=== PATIENT | male | born 1940 | race African-American/Black ===

== ENCOUNTER 2017-09-23 05:17 | Inpatient (IN) | payer MEDICARE, OTHER ==
[2017-09-23] MEDS ORDERED: NORMAL SALINE 1000 ML 1,000 ML IV ONE (06:02)
[2017-09-23] MEDS ORDERED: CEFEPIME 1 GM/D5W RTU 1 GM/50 ML RTUPB IV ONE (06:07)
--- NOTE | 2017-09-23 06:19 | ER Document Report ---
ED General - General Chief Complaint: Fever Stated Complaint: FEVER,WEAKNESS Time Seen by Provider: 09/23/17 06:07 Mode of Arrival: Ambulatory Information source: Patient Notes: 76-year-old male history of prostate metastatic cancer who is receiving chemotherapy last received on Monday presents with complaints of fever that started just prior to arrival. Patient notes he had difficulty urinating today. Patient has psoriasis and does note worsening rash in the left groin as well TRAVEL OUTSIDE OF THE [place] IN LAST 30 DAYS: No - HPI Onset: Just prior to arrival Onset/Duration: Sudden Quality of pain: No pain Severity: Mild Pain Level: Denies Associated symptoms: Nonproductive cough, Fever Exacerbated by: Denies Relieved by: Denies Similar symptoms previously: Yes - Patient septic from neutropenic infection last yr Recently seen / treated by doctor: Yes - Related Data Allergies/Adverse Reactions: No Known Allergies Allergy (Unverified 09/23/17 06:16) Past Medical History - Social History Smoking Status: Never Smoker Cigarette use (# per day): No Chew tobacco use (# tins/day): No Smoking Education Provided: No Family History: Reviewed & Not Pertinent Review of Systems - Review of Systems Notes: REVIEW OF SYSTEMS: CONSTITUTIONAL : fever EENT: Denies eye, ear, throat, or mouth pain or symptoms. Denies nasal or sinus congestion or discharge. Denies throat, tongue, or mouth swelling or difficulty swallowing. CARDIOVASCULAR: Denies chest pain. Denies palpitations or racing or irregular heart beat. Denies ankle edema. RESPIRATORY: chronic cough GASTROINTESTINAL: Denies abdominal pain or distention. Denies nausea, vomiting , or diarrhea. Denies blood in vomitus, stools, or per rectum. Denies black, tarry stools. Denies constipation. GENITOURINARY: Denies difficulty urinating, painful urination, burning, frequency, blood in urine, or discharge. MUSCULOSKELETAL: Denies back or neck pain or stiffness. Denies joint pain or swelling. SKIN: psoriasis rash HEMATOLOGIC : Denies easy bruising or bleeding. LYMPHATIC: Denies swollen, enlarged glands. NEUROLOGICAL: Denies confusion or altered mental status. Denies passing out or loss of consciousness. Denies dizziness or lightheadedness. Denies headache. Denies weakness or paralysis or loss of use of either side. Denies problems with gait or speech. Denies sensory loss, numbness, or tingling. Denies seizures. PSYCHIATRIC: Denies anxiety or stress. Denies depression, suicidal ideation, or homicidal ideation. ALL OTHER SYSTEMS REVIEWED AND NEGATIVE. Dictation was performed using [employer] voice recognition software PHYSICAL EXAMINATION: GENERAL: Obese male febrile HEAD: Atraumatic, normocephalic. EYES: Pupils equal round and reactive to light, extraocular movements intact, sclera anicteric, conjunctiva are normal. ENT: Nares patent, oropharynx clear without exudates. Moist mucous membranes. NECK: Normal range of motion, supple without lymphadenopathy LUNGS: Breath sounds clear to auscultation bilaterally and equal. No wheezes rales or rhonchi. HEART: Tachycardic ABDOMEN: Soft, nontender, nondistended abdomen. No guarding, no rebound. No masses appreciated. Musculoskeletal: Normal range of motion, no pitting or edema. No cyanosis. NEUROLOGICAL: Cranial nerves grossly intact. Normal speech, normal gait. Normal sensory, motor exams PSYCH: Normal mood, normal affect. SKIN: Dry rash noted on abdomen with erythematous rash in the left groin Physical Exam - Vital signs Vitals: Temp Pulse Resp BP Pulse Ox 100.2 F 106 H 20 118/79 95 09/23/17 05:26 09/23/17 05:26 09/23/17 05:26 09/23/17 05:26 09/23/17 05:26 Course - Re-evaluation Re-evalutation: 09/23/17 06:27 Patient has neutropenic fever, will be immediately started on antibiotics IV fluids septic workup pending 09/23/17 07:52 Patient does meet severe sepsis, he has received fluid hydration however 5 L have been ordered Hospitalist will admit requests addition of vanc - Vital Signs Vital signs: Temp Pulse Resp BP Pulse Ox 100.2 F 106 H 20 102/62 95 09/23/17 05:26 09/23/17 05:26 09/23/17 07:31 09/23/17 07:31 09/23/17 07:31 - Laboratory Result Diagrams: 09/23/17 06:10 09/23/17 06:10 Laboratory results interpreted by me: 09/23/17 09/23/17 09/23/17 06:10 06:10 06:10 RBC 3.54 L Hgb 10.8 L Hct 32.6 L RDW 16.8 H BUN 6 L Creatinine 1.27 H Est GFR (Non-Af Amer) 55 L Glucose 124 H Lactic Acid 4.0 H Calcium 7.6 L Direct Bilirubin 0.5 H Total Protein 5.9 L Albumin 3.3 L - Diagnostic Test Radiology reviewed: Image reviewed, Reports reviewed Critical Care Note - Critical Care Note Total time excluding time spent on procedures (mins): 37 Comments: 37 minutes of critical care time spent in direct contact evaluating and reevaluating the patient, treating symptoms, reviewing labs and studies and speaking with family and consultants excluding any procedures Discharge - Discharge Clinical Impression: Severe sepsis, Neutropenic fever Pneumonia Qualifiers: Pneumonia type: due to unspecified organism Laterality: bilateral Lung location : lower lobe of lung Qualified Code(s): J18.9 - Pneumonia, unspecified organism Condition: Stable Disposition: ADMITTED INPATIENT Admitting Provider: Hospitalist Unit Admitted: IMCU Referrals: CEE PERES MD [Primary Care Provider] - Follow up as needed
[2017-09-23 06:26] LABS: ABSOLUTE LYMPHOCYTES (AUTO) 2.8 10^3/uL (0.5-4.7); ABSOLUTE MONOCYTES (AUTO) 1.2 10^3/uL (0.1-1.4); ABSOLUTE NEUT (AUTO) 5.4 10^3/uL (1.7-8.2); BASOPHILS % (AUTO) 0.2 % (0-2); EOSINOPHILS % (AUTO) 0.2 % (0-6); HEMATOCRIT 32.6 % (37.9-51.0); HEMOGLOBIN 10.8 g/dL (13.5-17.0); HGB HCT DIFFERENCE -0.2; LYMPHOCYTES % (AUTO) 29.3 % (13-45); MEAN CORPUSCULAR HEMOGLOBIN 30.5 pg (27.0-33.4); MEAN CORPUSCULAR HGB CONC 33.1 g/dL (32.0-36.0); MEAN CORPUSCULAR VOLUME 92 fl (80-97); MONOCYTES % (AUTO) 12.4 % (3-13); RED BLOOD COUNT 3.54 10^6/uL (4.35-5.55); RED CELL DISTRIBUTION WIDTH 16.8 % (11.5-14.0); SEGMENTED NEUTROPHILS % (AUTO) 57.9 % (42-78); WHITE BLOOD COUNT 9.4 10^3/uL (4.0-10.5)
[2017-09-23] MEDS: NORMAL SALINE 1000 ML 1,000 ML IV PRN ×4 (06:26→10:05)
[2017-09-23] MEDS ORDERED: IPRATROPIUM/ALBUTEROL 0.5-2.5 MG/3 ML AMPUL NEB ONE (06:27)
[2017-09-23 06:28] LABS: VENOUS BLOOD BASE EXCESS 0.1 mmol/L; VENOUS BLOOD PCO2 46.7 mmHg (35-63); VENOUS BLOOD PH 7.36 (7.30-7.42)
[2017-09-23 06:47] LABS: ALANINE AMINOTRANSFERASE 46 U/L (21-72); ALBUMIN 3.3 g/dL (3.5-5.0); ALKALINE PHOSPHATASE 48 U/L (38-126); ANION GAP 14 (5-19); ASPARTATE AMINO TRANSFERASE 32 U/L (17-59); BILIRUBIN,DIRECT 0.5 mg/dL (0.0-0.4); BILIRUBIN,TOTAL 1.1 mg/dL (0.2-1.3); BLOOD UREA NITROGEN 6 mg/dL (7-20); CALCIUM 7.6 mg/dL (8.4-10.2); CARBON DIOXIDE 24 mmol/L (22-30); CHLORIDE 102 mmol/L (98-107); CREATININE RESULT 1.27 mg/dL (0.52-1.25); GLUCOSE 124 mg/dL (75-110); POTASSIUM 3.6 mmol/L (3.6-5.0); SODIUM 139.9 mmol/L (137-145); TOTAL PROTEIN 5.9 g/dL (6.3-8.2)
[2017-09-23] MEDS ORDERED: ONDANSETRON HCL INJ/PF 4 MG/2 ML SDV IV ONE (07:09)
--- NOTE | 2017-09-23 07:11 | RADIOLOGY REPORT (SQ) ---
EXAM DESCRIPTION: CHEST SINGLE VIEW COMPLETED DATE/TIME: 09/23/2017 7:02 am REASON FOR STUDY: fever COMPARISON: Chest x-ray 11/25/2014. EXAM PARAMETERS: NUMBER OF VIEWS: One view. TECHNIQUE: Single frontal radiographic view of the chest acquired. RADIATION DOSE: NA LIMITATIONS: Patient positioning. FINDINGS: LUNGS AND PLEURA: The patient is rotated. There are bibasilar ground-glass opacities. No sizable pleural effusion or pneumothorax. MEDIASTINUM AND HILAR STRUCTURES: No obvious masses. HEART AND VASCULAR STRUCTURES: The heart is upper normal limit in size. No overt vascular congestion . BONES: No acute findings. HARDWARE: None in the chest. IMPRESSION: Bibasilar ground-glass opacities, may represent atelectasis or pneumonia. TECHNICAL DOCUMENTATION: JOB ID: [id number] 2010 [employer]- All Rights Reserved
[2017-09-23] MEDS ORDERED: VANCOMYCIN HCL INJ 1000 MG VIAL IV ONE (07:51)
[2017-09-23] MEDS: DOCUSATE SODIUM 100 MG CAPSULE PO SCH (10:46)
[2017-09-23] MEDS: ONDANSETRON HCL INJ/PF 4 MG/2 ML SDV IV PRN (11:08)
[2017-09-23] MEDS: ACETAMINOPHEN 325 MG TABLET PO PRN (11:30)
[2017-09-23 11:41] LABS: APPEARANCE,URINE CLEAR; BILIRUBIN,URINE NEGATIVE (NEGATIVE); GLUCOSE, URINE NEGATIVE (NEGATIVE); KETONES,URINE NEGATIVE (NEGATIVE); LEUKOCYTE ESTERASE,URINE NEGATIVE (NEGATIVE); NITRITE,URINE NEGATIVE (NEGATIVE); PROTEIN,URINE NEGATIVE (NEGATIVE); URINE SPECIFIC GRAVITY 1.006; UROBILINOGEN,URINE NEGATIVE mg/dL (<2.0)
[2017-09-23 11:47] LABS: WBC,URINE 0-1 /HPF
[2017-09-23] MEDS: LINEZOLID 300 ML IV SCH (14:44)
[2017-09-23] MEDS: PIPERACILLIN SODIUM/TAZOBACTAM 3.375 GM in NORMAL SALINE 100 ML IV SCH ×2 (14:45→21:23)
[2017-09-23] MEDS ORDERED: INFLUENZA ADLT QUAD (36MOS+) 2017-18 VAC 0.5 ML SYR IM PRN (16:40)
[2017-09-23] MEDS ORDERED: NORMAL SALINE 1000 ML 1,000 ML IV PRN (18:33)
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
[2017-09-23] MEDS: NYSTATIN TOPICAL POWDER 15 GM TP SCH (20:13)
--- NOTE | 2017-09-23 20:58 | EKG REPORT ---
SEVERITY:- ABNORMAL ECG - SINUS TACHYCARDIA ATRIAL PREMATURE COMPLEX BORDERLINE LEFT AXIS DEVIATION BORDERLINE R WAVE PROGRESSION, ANTERIOR LEADS BORDERLINE T WAVE ABNORMALITIES : Confirmed by: Adalid Metz MD 23-Sep-2017 14:22:43
[2017-09-24] MEDS: LINEZOLID 300 ML IV SCH ×2 (01:35→14:13)
[2017-09-24] MEDS: PIPERACILLIN SODIUM/TAZOBACTAM 3.375 GM in NORMAL SALINE 100 ML IV SCH ×4 (03:13→20:31)
[2017-09-24] MEDS: LANSOPRAZOLE 30 MG TAB.RAP.DR PO SCH (05:14)
[2017-09-24 07:19] LABS: HEMATOCRIT 30.8 % (37.9-51.0); HEMOGLOBIN 10.4 g/dL (13.5-17.0); HGB HCT DIFFERENCE 0.4; MEAN CORPUSCULAR HEMOGLOBIN 31.1 pg (27.0-33.4); MEAN CORPUSCULAR HGB CONC 33.8 g/dL (32.0-36.0); MEAN CORPUSCULAR VOLUME 92 fl (80-97); RED BLOOD COUNT 3.34 10^6/uL (4.35-5.55); RED CELL DISTRIBUTION WIDTH 16.6 % (11.5-14.0); WHITE BLOOD COUNT 9.5 10^3/uL (4.0-10.5)
[2017-09-24 07:55] LABS: BASOPHILS % (MANUAL) 0 % (0-2); EOSINOPHILS % (MANUAL) 0 % (0-6); LYMPHOCYTES % (MANUAL) 16 % (13-45); TOTAL CELLS COUNTED 100
[2017-09-24 07:57] LABS: ANISOCYTOSIS 1+; BURR CELLS SLIGHT; OVALOCYTES SLIGHT; PLATELET CLUMPS PRESENT; POIKILOCYTOSIS 1+; POLYCHROMASIA SLIGHT; TARGET CELLS SLIGHT
[2017-09-24 09:39] LABS: ALANINE AMINOTRANSFERASE 34 U/L (21-72); ALBUMIN 2.2 g/dL (3.5-5.0); ALKALINE PHOSPHATASE 27 U/L (38-126); ANION GAP 7 (5-19); ASPARTATE AMINO TRANSFERASE 31 U/L (17-59); BILIRUBIN,DIRECT 0.5 mg/dL (0.0-0.4); BILIRUBIN,TOTAL 1.1 mg/dL (0.2-1.3); BLOOD UREA NITROGEN 8 mg/dL (7-20); CARBON DIOXIDE 23 mmol/L (22-30); CHLORIDE 111 mmol/L (98-107); CREATININE RESULT 1.26 mg/dL (0.52-1.25); GLUCOSE 102 mg/dL (75-110); POTASSIUM 3.9 mmol/L (3.6-5.0); SODIUM 141.2 mmol/L (137-145); TOTAL PROTEIN 4.3 g/dL (6.3-8.2)
[2017-09-24 09:50] LABS: CALCIUM 6.6 mg/dL (8.4-10.2); MAGNESIUM 0.9 mg/dL (1.6-2.3)
[2017-09-24] MEDS: CHOLECALCIFEROL (D3) 1,000 UNIT TABLET PO SCH (09:50)
[2017-09-24] MEDS: ARIPIPRAZOLE 5 MG TABLET PO SCH (09:51)
[2017-09-24] MEDS: TAMSULOSIN HCL 0.4 MG CAP.SR.24H PO SCH (09:51)
[2017-09-24] MEDS: DUTASTERIDE 0.5 MG CAPSULE PO SCH (09:53)
[2017-09-24] MEDS: FONDAPARINUX SODIUM INJ 2.5 MG/0.5 ML DISP.SYRIN SUBCUT SCH (09:53)
[2017-09-24] MEDS: NYSTATIN TOPICAL POWDER 15 GM TP SCH ×2 (09:56→19:30)
[2017-09-24] MEDS: DOCUSATE SODIUM 100 MG CAPSULE PO SCH (09:57)
[2017-09-24] MEDS: ONDANSETRON HCL INJ/PF 4 MG/2 ML SDV IV PRN (11:17)
[2017-09-24] MEDS: ACETAMINOPHEN 325 MG TABLET PO PRN (11:18)
[2017-09-24] MEDS ORDERED: MAGNESIUM SULFATE 4 GM/100 ML RTUPB IV ONE (12:00)
[2017-09-24] MEDS ORDERED: DEXTROSE 40% GEL 15 GM TUBE PO PRN ×2 (14:00)
[2017-09-24] MEDS ORDERED: DEXTROSE 50%-WATER 25 GM/50 ML DISP.SYRIN IV PRN ×2 (14:00)
[2017-09-24] MEDS ORDERED: METRONIDAZOLE 500 MG/NS RTU 250 MG in CONTAINER,EMPTY 1 EACH IV SCH (14:00)
[2017-09-24] MEDS ORDERED: GLUCAGON,HUMAN RECOMB 1 MG INJ SUBCUT PRN (14:00)
--- NOTE | 2017-09-24 14:15 | PDOC PROGRESS REPORT ---
Subjective Progress Note for:: 09/24/17 Subjective:: Patient complains of nausea. At the time of evaluation patient was on the republican trying to have a bowel movement. Posteriorly nurse reported diarrheal movement. Stool for C. difficile was requested by nursePatient complains of nausea. At the time of evaluation patient was on the potty trained to have a bowel movement. Posteriorly nurse reported diarrheal movement. Stool for C. difficile was requested by nurse ROS all organ systems have been evaluated and negative except as in subjective All significant laboratory and diagnostics have been reviewedROS all organ systems have been evaluated and negative except as in subjective All significant laboratory and diagnostics have been reviewed Reason For Visit: SEVERE SEPSIS Physical Exam Vital Signs: Temp Pulse Resp BP Pulse Ox 100.7 F H 95 20 128/79 H 92 09/24/17 01:36 09/24/17 02:00 09/24/17 01:36 09/24/17 01:36 09/24/17 01:36 Intake & Output 09/22/17 09/23/17 09/24/17 06:59 06:59 06:59 Intake Total 1377 Output Total 620 Balance 757 Weight 165.5 kg General appearance: PRESENT: no acute distress, cooperative, morbidly obese Head exam: PRESENT: atraumatic, normocephalic Eye exam: PRESENT: EOMI, PERRLA Ear exam: PRESENT: normal external ear exam Neck exam: PRESENT: full ROM. ABSENT: JVD, tenderness Respiratory exam: PRESENT: clear to auscultation yamini Cardiovascular exam: PRESENT: RRR. ABSENT: diastolic murmur, systolic murmur Vascular exam: PRESENT: normal capillary refill GI/Abdominal exam: PRESENT: distended, normal bowel sounds - Slightly distant bowel sounds. ABSENT: guarding, tenderness Extremities exam: PRESENT: pedal edema. ABSENT: joint swelling Musculoskeletal exam: PRESENT: full ROM Neurological exam: PRESENT: alert, oriented to person, oriented to place, oriented to time Psychiatric exam: PRESENT: appropriate affect, normal mood Skin exam: PRESENT: other - Improved abdominal rash as well as otherImproved abdominal rash as well as odor Results Laboratory Results: 09/23/17 09/23/17 09/23/17 10:06 10:39 11:00 Lactic Acid 1.5 1.9 Urine Color YELLOW Urine Appearance CLEAR Urine pH 6.0 Ur Specific [place] 1.006 Urine Protein NEGATIVE Urine Glucose (UA) NEGATIVE Urine Ketones NEGATIVE Urine Blood NEGATIVE Urine Nitrite NEGATIVE Ur Leukocyte Esterase NEGATIVE Impressions: Chest X-Ray 09/23/17 05:47 IMPRESSION: Bibasilar ground-glass opacities, may represent atelectasis or pneumonia. Assessment & Plan - Diagnosis (1) Anemia Qualifiers: Anemia type: unspecified type Qualified Code(s): D64.9 - Anemia, unspecified Is this a current diagnosis for this admission?: Yes Plan: Likely due to chronic disease. To trend. 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 Continue present management. (3) Pneumonia Qualifiers: Pneumonia type: due to unspecified organism Laterality: bilateral Lung location: lower lobe of lung Qualified Code(s): J18.9 - Pneumonia, unspecified organism Is this a current diagnosis for this admission?: Yes Plan: Continue zyvox and zosyn to cover for Pseudomonas and MRSA. (4) Severe sepsis Plan: Improvement and to decrease rate of IV fluids (5) Nausea & vomiting Is this a current diagnosis for this admission?: Yes Plan: To place patient n.p.o. except for meds. Order KUB and Phenergan IV, Order KUB and Phenergan IV (6) Diarrhea Is this a current diagnosis for this admission?: Yes Plan: Clostridium difficile already obtained by nurse and in agreement since a history of C. difficile. We will start Flagyl IV empirically - Time Time Spent with patient: 15-24 minutes Medications reviewed and adjusted accordingly: Yes Anticipated discharge: Home - Inpatient Certification Based on my medical assessment, after consideration of the patient's comorbidities, presenting symptoms, or acuity I expect that the services needed warrant INPATIENT care.: Yes I certify that my determination is in accordance with my understanding of Medicare's requirements for reasonable and necessary INPATIENT services [42 CFR 412.3e].: Yes Medical Necessity: Need For IV Fluids, Need for IV Antibiotics
[2017-09-24] MEDS: PROMETHAZINE HCL INJ 25 MG/1 ML VIAL IV PRN (14:17)
[2017-09-24] MEDS ORDERED: METRONIDAZOLE 500 MG/NS RTU 100 ML IV SCH (15:00)
--- NOTE | 2017-09-24 16:24 | RADIOLOGY REPORT (SQ) ---
EXAM DESCRIPTION: KUB/ABDOMEN (SINGLE VIEW) COMPLETED DATE/TIME: 09/24/2017 3:48 pm REASON FOR STUDY: vomiting COMPARISON: None. NUMBER OF VIEWS: One view. TECHNIQUE: Supine radiographic image of the abdomen acquired. LIMITATIONS: None. FINDINGS: BOWEL GAS PATTERN: Few Scattered gas filled bowel loops, nonspecific pattern. CALCIFICATIONS: No suspicious calcifications. SOFT TISSUES: No gross mass or suggestion of organomegaly. HARDWARE: Multiple sutures present in the abdomen. Prostatic metallic seeds. BONES: No acute fracture. Multiple blastic bone lesions. OTHER: No other significant finding. IMPRESSION: Few Scattered gas filled bowel loops, nonspecific pattern. Follow-up recommended if per sistent concern for developing obstruction. Multiple blastic bone lesions consistent with diffuse me tastatic disease. TECHNICAL DOCUMENTATION: JOB ID: [id number] 2010 [employer]- All Rights Reserved
[2017-09-24] MEDS: MAGNESIUM OXIDE 400 MG TABLET PO SCH (19:30)
[2017-09-24] MEDS: LACTOBACILLUS ACIDOPHILUS 250 MG TAB PO SCH (19:30)
[2017-09-24] MEDS: IPRATROPIUM/ALBUTEROL 0.5-2.5 MG/3 ML AMPUL NEB SCH (20:18)
[2017-09-24] MEDS: FLUTICASONE/SALMETEROL DISKUS 250-50 MCG/DOSE IH SCH (21:59)
[2017-09-25] MEDS: LINEZOLID 300 ML IV SCH ×2 (01:58→13:00)
[2017-09-25] MEDS: PIPERACILLIN SODIUM/TAZOBACTAM 3.375 GM in NORMAL SALINE 100 ML IV SCH ×4 (03:03→20:08)
[2017-09-25] MEDS: ONDANSETRON HCL INJ/PF 4 MG/2 ML SDV IV PRN ×2 (03:56→21:07)
[2017-09-25] MEDS: LANSOPRAZOLE 30 MG TAB.RAP.DR PO SCH (05:05)
[2017-09-25 06:53] LABS: ALANINE AMINOTRANSFERASE 40 U/L (21-72); ALBUMIN 2.3 g/dL (3.5-5.0); ALKALINE PHOSPHATASE 35 U/L (38-126); ANION GAP 9 (5-19); ASPARTATE AMINO TRANSFERASE 25 U/L (17-59); BILIRUBIN,DIRECT 0.6 mg/dL (0.0-0.4); BILIRUBIN,TOTAL 1.3 mg/dL (0.2-1.3); BLOOD UREA NITROGEN 9 mg/dL (7-20); CARBON DIOXIDE 24 mmol/L (22-30); CHLORIDE 107 mmol/L (98-107); CREATININE RESULT 1.21 mg/dL (0.52-1.25); GLUCOSE 100 mg/dL (75-110); MAGNESIUM 1.5 mg/dL (1.6-2.3); POTASSIUM 3.2 mmol/L (3.6-5.0); SODIUM 139.5 mmol/L (137-145); TOTAL PROTEIN 4.6 g/dL (6.3-8.2)
[2017-09-25 07:10] LABS: CALCIUM 6.5 mg/dL (8.4-10.2)
[2017-09-25] MEDS: IPRATROPIUM/ALBUTEROL 0.5-2.5 MG/3 ML AMPUL NEB SCH ×3 (08:25→20:24)
[2017-09-25] MEDS: FONDAPARINUX SODIUM INJ 2.5 MG/0.5 ML DISP.SYRIN SUBCUT SCH (08:35)
[2017-09-25] MEDS: CHOLECALCIFEROL (D3) 1,000 UNIT TABLET PO SCH (10:02)
[2017-09-25] MEDS: ARIPIPRAZOLE 5 MG TABLET PO SCH (10:04)
[2017-09-25] MEDS: MAGNESIUM OXIDE 400 MG TABLET PO SCH ×2 (10:04→17:38)
[2017-09-25] MEDS: LACTOBACILLUS ACIDOPHILUS 250 MG TAB PO SCH ×2 (10:05→17:38)
[2017-09-25] MEDS: DUTASTERIDE 0.5 MG CAPSULE PO SCH (10:05)
[2017-09-25] MEDS: FLUTICASONE/SALMETEROL DISKUS 250-50 MCG/DOSE IH SCH ×2 (10:06→21:12)
[2017-09-25] MEDS: TAMSULOSIN HCL 0.4 MG CAP.SR.24H PO SCH (10:06)
[2017-09-25] MEDS: NYSTATIN TOPICAL POWDER 15 GM TP SCH ×2 (10:06→17:37)
[2017-09-25] MEDS: DOCUSATE SODIUM 100 MG CAPSULE PO SCH (10:07)
--- NOTE | 2017-09-25 18:49 | PDOC PROGRESS REPORT ---
Subjective Progress Note for:: 09/25/17 Subjective:: Patient relates that nausea is gone and still having slight diarrhea ROS all organ systems have been evaluated and negative except as in subjective All significant laboratory and diagnostics have been reviewed Reason For Visit: SEVERE SEPSIS NEUTROPENIC FEVER Physical Exam Vital Signs: Temp Pulse Resp BP Pulse Ox 100.4 F 102 H 16 113/61 100 09/25/17 04:48 09/25/17 04:48 09/25/17 04:48 09/25/17 04:48 09/25/17 04:48 Intake & Output 09/23/17 09/24/17 09/25/17 06:59 06:59 06:59 Intake Total 1599 787 Output Total 820 900 Balance 779 -113 Weight 165.5 kg 156.3 kg General appearance: PRESENT: no acute distress, cooperative, morbidly obese Head exam: PRESENT: atraumatic, normocephalic Eye exam: PRESENT: EOMI, PERRLA Mouth exam: PRESENT: moist, neck supple Neck exam: PRESENT: full ROM. ABSENT: JVD, tenderness Respiratory exam: PRESENT: clear to auscultation yamini. ABSENT: crackles, rhonchi Cardiovascular exam: PRESENT: RRR. ABSENT: diastolic murmur, systolic murmur Vascular exam: PRESENT: normal capillary refill GI/Abdominal exam: PRESENT: normal bowel sounds, soft, other - Morbidly obese. ABSENT: tenderness Neurological exam: PRESENT: alert, oriented to person, oriented to place, oriented to time Psychiatric exam: PRESENT: appropriate affect, normal mood Results Laboratory Results: 09/24/17 06:01 09/24/17 08:50 09/24/17 09/24/17 09/24/17 06:01 06:01 08:50 WBC 9.5 RBC 3.34 L Hgb 10.4 L Hct 30.8 L MCV 92 MCH 31.1 MCHC 33.8 RDW 16.6 H Plt Count 192 Seg Neutrophils % Not Reportable Lymphocytes % Not Reportable Monocytes % Not Reportable Eosinophils % Not Reportable Basophils % Not Reportable Absolute Neutrophils Not Reportable Absolute Lymphocytes Not Reportable Absolute Monocytes Not Reportable Absolute Eosinophils Not Reportable Absolute Basophils Not Reportable Sodium Cancelled 141.2 Potassium Cancelled 3.9 Chloride Cancelled 111 H Carbon Dioxide Cancelled 23 Anion Gap Cancelled 7 BUN Cancelled 8 Creatinine Cancelled 1.26 H Est GFR ( Amer) Cancelled > 60 Est GFR (Non-Af Amer) Cancelled 56 L Glucose Cancelled 102 Calcium Cancelled 6.6 L* Magnesium Cancelled 0.9 L* Total Bilirubin Cancelled 1.1 AST Cancelled 31 ALT Cancelled 34 Alkaline Phosphatase Cancelled 27 L Total Protein Cancelled 4.3 L Albumin Cancelled 2.2 L 09/24/17 06:01 NT-Pro-B Natriuret Pep 282 Impressions: Chest X-Ray 09/23/17 05:47 IMPRESSION: Bibasilar ground-glass opacities, may represent atelectasis or pneumonia. KUB X-Ray 09/24/17 00:00 IMPRESSION: Few Scattered gas filled bowel loops, nonspecific pattern. Follow- up recommended if persistent concern for developing obstruction. Multiple blastic bone lesions consistent with diffuse metastatic disease. Assessment & Plan - Diagnosis (1) Anemia Qualifiers: Anemia type: unspecified type Qualified Code(s): D64.9 - Anemia, unspecified Is this a current diagnosis for this admission?: Yes Plan: Likely due to chronic disease. Trend. 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 Continue present management. (3) Pneumonia Qualifiers: Pneumonia type: due to unspecified organism Laterality: bilateral Lung location: lower lobe of lung Qualified Code(s): J18.9 - Pneumonia, unspecified organism Is this a current diagnosis for this admission?: Yes Plan: Continue zyvox and zosyn to cover for Pseudomonas and MRSA. (4) Severe sepsis Plan: Resolved. Discontinue IV fluids (5) Nausea & vomiting Is this a current diagnosis for this admission?: Yes Plan: Appears to be a chronic problem that comes and goes. Restart clear liquids and will move slowly (6) Diarrhea Is this a current diagnosis for this admission?: Yes Plan: Clostridium difficile already obtained by nurse and in agreement since a history of C. difficile. Of Flagyl. And may relate to antibiotic (7) Sleep apnea Is this a current diagnosis for this admission?: Yes Plan: Continue BiPAP at bedtime since had been doing well. and patient made aware of importance to follow-up with his primary care provider if you need to change the device that they are using at home since his lifesaving - Time Time Spent with patient: 15-24 minutes Medications reviewed and adjusted accordingly: Yes Anticipated discharge: Home Within: within 48 hours - Inpatient Certification Based on my medical assessment, after consideration of the patient's comorbidities, presenting symptoms, or acuity I expect that the services needed warrant INPATIENT care.: Yes I certify that my determination is in accordance with my understanding of Medicare's requirements for reasonable and necessary INPATIENT services [42 CFR 412.3e].: Yes Medical Necessity: Need for IV Antibiotics
[2017-09-25] MEDS: ZOLPIDEM TARTRATE 5 MG TABLET PO PRN (22:34)
[2017-09-26] MEDS: LINEZOLID 300 ML IV SCH ×2 (01:10→12:11)
[2017-09-26] MEDS: PIPERACILLIN SODIUM/TAZOBACTAM 3.375 GM in NORMAL SALINE 100 ML IV SCH ×2 (03:06→09:52)
[2017-09-26] MEDS: LANSOPRAZOLE 30 MG TAB.RAP.DR PO SCH (05:22)
[2017-09-26] MEDS: IPRATROPIUM/ALBUTEROL 0.5-2.5 MG/3 ML AMPUL NEB SCH ×3 (07:46→20:23)
[2017-09-26] MEDS: FONDAPARINUX SODIUM INJ 2.5 MG/0.5 ML DISP.SYRIN SUBCUT SCH (08:04)
[2017-09-26] MEDS: FLUTICASONE/SALMETEROL DISKUS 250-50 MCG/DOSE IH SCH ×2 (09:52→21:23)
[2017-09-26] MEDS: DUTASTERIDE 0.5 MG CAPSULE PO SCH (09:52)
[2017-09-26] MEDS: ARIPIPRAZOLE 5 MG TABLET PO SCH (09:52)
[2017-09-26] MEDS: CHOLECALCIFEROL (D3) 1,000 UNIT TABLET PO SCH (09:53)
[2017-09-26] MEDS: MAGNESIUM OXIDE 400 MG TABLET PO SCH ×2 (09:53→21:22)
[2017-09-26] MEDS: LACTOBACILLUS ACIDOPHILUS 250 MG TAB PO SCH ×2 (09:53→17:25)
[2017-09-26] MEDS: TAMSULOSIN HCL 0.4 MG CAP.SR.24H PO SCH (09:54)
[2017-09-26] MEDS: DOCUSATE SODIUM 100 MG CAPSULE PO SCH (09:54)
[2017-09-26] MEDS: NYSTATIN TOPICAL POWDER 15 GM TP SCH ×2 (09:54→17:26)
[2017-09-26] MEDS: ONDANSETRON HCL INJ/PF 4 MG/2 ML SDV IV PRN (10:19)
[2017-09-26] MEDS: OXYCODONE-ACETAMINOPHEN 5-325 MG TABLET PO PRN (12:09)
[2017-09-26] MEDS ORDERED: MAGNESIUM OXIDE 400 MG TABLET PO SCH (15:11)
--- NOTE | 2017-09-26 15:55 | PDOC PROGRESS REPORT ---
Subjective Progress Note for:: 09/26/17 Subjective:: Patient relates that nausea is gone and still having slight diarrhea ROS all organ systems have been evaluated and negative except as in subjective All significant laboratory and diagnostics have been reviewed Reason For Visit: SEVERE SEPSIS NEUTROPENIC FEVER Physical Exam Vital Signs: Temp Pulse Resp BP Pulse Ox 99.4 F 87 16 122/78 100 09/26/17 04:20 09/26/17 04:20 09/26/17 04:20 09/26/17 04:20 09/26/17 04:20 Intake & Output 09/24/17 09/25/17 09/26/17 06:59 06:59 06:59 Intake Total 1599 1587 1394 Output Total 820 1125 0 Balance 963 542 3915 Weight 165.5 kg 156.3 kg 164 kg General appearance: PRESENT: no acute distress, cooperative, morbidly obese Head exam: PRESENT: atraumatic, normocephalic Eye exam: PRESENT: EOMI, PERRLA Ear exam: PRESENT: normal external ear exam Mouth exam: PRESENT: moist, neck supple Neck exam: PRESENT: full ROM. ABSENT: JVD, tenderness Respiratory exam: PRESENT: clear to auscultation yamini Cardiovascular exam: PRESENT: RRR. ABSENT: diastolic murmur, systolic murmur Vascular exam: PRESENT: normal capillary refill GI/Abdominal exam: PRESENT: normal bowel sounds, soft. ABSENT: guarding Extremities exam: PRESENT: pedal edema. ABSENT: joint swelling Musculoskeletal exam: PRESENT: full ROM Neurological exam: PRESENT: alert, awake, oriented to person, oriented to place , oriented to time Psychiatric exam: PRESENT: appropriate affect, normal mood Skin exam: PRESENT: normal color, rash Results Laboratory Results: 09/24/17 06:01 09/25/17 06:00 09/25/17 06:00 Sodium 139.5 Potassium 3.2 L Chloride 107 Carbon Dioxide 24 Anion Gap 9 BUN 9 Creatinine 1.21 Est GFR ( Amer) > 60 Est GFR (Non-Af Amer) 58 L Glucose 100 Calcium 6.5 L* Magnesium 1.5 L Total Bilirubin 1.3 AST 25 ALT 40 Alkaline Phosphatase 35 L Total Protein 4.6 L Albumin 2.3 L 09/24/17 06:01 NT-Pro-B Natriuret Pep 282 Impressions: Chest X-Ray 09/23/17 05:47 IMPRESSION: Bibasilar ground-glass opacities, may represent atelectasis or pneumonia. KUB X-Ray 09/24/17 00:00 IMPRESSION: Few Scattered gas filled bowel loops, nonspecific pattern. Follow- up recommended if persistent concern for developing obstruction. Multiple blastic bone lesions consistent with diffuse metastatic disease. Assessment & Plan - Diagnosis (1) Anemia Qualifiers: Anemia type: unspecified type Qualified Code(s): D64.9 - Anemia, unspecified Is this a current diagnosis for this admission?: Yes Plan: Likely due to chronic disease. Trend. 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 Continue present management. (3) Pneumonia Qualifiers: Pneumonia type: due to unspecified organism Laterality: bilateral Lung location: lower lobe of lung Qualified Code(s): J18.9 - Pneumonia, unspecified organism Is this a current diagnosis for this admission?: Yes Plan: All cultures so far negative. Will discontinue Zyvox and Zosyn. Patient will be placed on Augmentin and Levaquin since immunosuppressed due to recurrent chemotherapy for prostate cancer (4) Severe sepsis Plan: Resolved. (5) Nausea & vomiting Is this a current diagnosis for this admission?: Yes Plan: Improved. To advance diet to cardiac (6) Diarrhea Is this a current diagnosis for this admission?: Yes Plan: Mild likely due to antibiotic. C. difficile negative (7) Sleep apnea Qualifiers: Sleep apnea type: obstructive Qualified Code(s): G47.33 - Obstructive sleep apnea (adult) (pediatric) Is this a current diagnosis for this admission?: Yes Plan: Continue BiPAP at bedtime since had been doing well. and patient made aware of importance to follow-up with his primary care provider if needing to change the device that they are using at home since his lifesaving. Cough resolved since on BiPAP (8) Hypokalemia Is this a current diagnosis for this admission?: Yes Plan: Replace p.o. and trend (9) Hypomagnesemia Is this a current diagnosis for this admission?: Yes Plan: Replace IV and p.o. To trend - Time Time Spent with patient: 15-24 minutes Medications reviewed and adjusted accordingly: Yes Anticipated discharge: Home - Inpatient Certification Based on my medical assessment, after consideration of the patient's comorbidities, presenting symptoms, or acuity I expect that the services needed warrant INPATIENT care.: Yes I certify that my determination is in accordance with my understanding of Medicare's requirements for reasonable and necessary INPATIENT services [42 CFR 412.3e].: Yes Medical Necessity: Need Close Monitoring Due to Risk of Patient Decompensation
[2017-09-26] MEDS ORDERED: POTASSIUM CHLORIDE 10 MEQ TABLET.SA PO ONE (16:00)
[2017-09-26] MEDS: LEVOFLOXACIN 500 MG TABLET PO SCH (16:28)
[2017-09-26] MEDS: AMOXICILLIN TR/POT CLAVULANATE 500-125 MG TAB PO SCH (21:22)
[2017-09-26] MEDS: ZOLPIDEM TARTRATE 5 MG TABLET PO PRN (23:22)
[2017-09-27] MEDS: PROMETHAZINE HCL INJ 25 MG/1 ML VIAL IV PRN (00:51)
[2017-09-27] MEDS: ONDANSETRON HCL INJ/PF 4 MG/2 ML SDV IV PRN (04:45)
[2017-09-27] MEDS: AMOXICILLIN TR/POT CLAVULANATE 500-125 MG TAB PO SCH ×3 (05:12→21:22)
[2017-09-27] MEDS: LANSOPRAZOLE 30 MG TAB.RAP.DR PO SCH (05:12)
[2017-09-27 06:38] LABS: ABSOLUTE EOSINOPHILS # (AUTO) 0.1 10^3/uL (0.0-0.6); ABSOLUTE LYMPHOCYTES (AUTO) 1.2 10^3/uL (0.5-4.7); ABSOLUTE NEUT (AUTO) 3.5 10^3/uL (1.7-8.2); BASOPHILS % (AUTO) 0.5 % (0-2); EOSINOPHILS % (AUTO) 2.3 % (0-6); HEMOGLOBIN 9.9 g/dL (13.5-17.0); HGB HCT DIFFERENCE 0.7; LYMPHOCYTES % (AUTO) 20.7 % (13-45); MEAN CORPUSCULAR HEMOGLOBIN 30.7 pg (27.0-33.4); MEAN CORPUSCULAR HGB CONC 34.1 g/dL (32.0-36.0); MEAN CORPUSCULAR VOLUME 90 fl (80-97); MONOCYTES % (AUTO) 16.8 % (3-13); RED BLOOD COUNT 3.22 10^6/uL (4.35-5.55); RED CELL DISTRIBUTION WIDTH 16.5 % (11.5-14.0); SEGMENTED NEUTROPHILS % (AUTO) 59.7 % (42-78); WHITE BLOOD COUNT 5.8 10^3/uL (4.0-10.5)
[2017-09-27 07:04] LABS: ANION GAP 12 (5-19); BLOOD UREA NITROGEN 11 mg/dL (7-20); CARBON DIOXIDE 22 mmol/L (22-30); CHLORIDE 105 mmol/L (98-107); CREATININE RESULT 1.02 mg/dL (0.52-1.25); GLUCOSE 92 mg/dL (75-110); MAGNESIUM 1.6 mg/dL (1.6-2.3); POTASSIUM 3.3 mmol/L (3.6-5.0); SODIUM 138.5 mmol/L (137-145)
[2017-09-27 07:13] LABS: CALCIUM 5.9 mg/dL (8.4-10.2)
[2017-09-27] MEDS ORDERED: CALCIUM GLUCONATE 1000 MG/10 ML INJ IV ONE ×2 (07:22→13:00)
[2017-09-27] MEDS: IPRATROPIUM/ALBUTEROL 0.5-2.5 MG/3 ML AMPUL NEB SCH ×3 (07:47→20:10)
[2017-09-27] MEDS: FONDAPARINUX SODIUM INJ 2.5 MG/0.5 ML DISP.SYRIN SUBCUT SCH (08:03)
[2017-09-27] MEDS: DUTASTERIDE 0.5 MG CAPSULE PO SCH (09:18)
[2017-09-27] MEDS: ARIPIPRAZOLE 5 MG TABLET PO SCH (09:19)
[2017-09-27] MEDS: TAMSULOSIN HCL 0.4 MG CAP.SR.24H PO SCH (09:20)
[2017-09-27] MEDS: MAGNESIUM OXIDE 400 MG TABLET PO SCH ×2 (09:20→21:21)
[2017-09-27] MEDS: CHOLECALCIFEROL (D3) 1,000 UNIT TABLET PO SCH (09:22)
[2017-09-27] MEDS: LACTOBACILLUS ACIDOPHILUS 250 MG TAB PO SCH ×2 (09:24→17:15)
[2017-09-27] MEDS: FLUTICASONE/SALMETEROL DISKUS 250-50 MCG/DOSE IH SCH ×2 (09:27→21:22)
[2017-09-27] MEDS: NYSTATIN TOPICAL POWDER 15 GM TP SCH ×2 (09:28→17:16)
[2017-09-27] MEDS: DOCUSATE SODIUM 100 MG CAPSULE PO SCH (09:33)
[2017-09-27] MEDS: OXYCODONE-ACETAMINOPHEN 5-325 MG TABLET PO PRN ×2 (09:53→23:14)
[2017-09-27] MEDS ORDERED: POTASSIUM CHLORIDE 10 MEQ TABLET.SA PO SCH (10:00)
[2017-09-27] MEDS: POTASSIUM CHLORIDE 10 MEQ TABLET.SA PO SCH ×2 (13:17→21:21)
[2017-09-27] MEDS: LEVOFLOXACIN 500 MG TABLET PO SCH (15:27)
--- NOTE | 2017-09-27 16:20 | PDOC PROGRESS REPORT ---
Subjective Subjective:: Patient sleeping. Concerns voiced by . She would like for patient to get PT. Still having cough and diarrhea. ROS Unable to obtain since sleeping All significant laboratory and diagnostics had been reviewed Reason For Visit: SEVERE SEPSIS NEUTROPENIC FEVER Physical Exam Vital Signs: Temp Pulse Resp BP Pulse Ox 98.9 F 99 20 118/88 H 98 09/27/17 03:17 09/27/17 03:17 09/27/17 03:17 09/27/17 03:17 09/27/17 03:17 Intake & Output 09/25/17 09/26/17 09/27/17 06:59 06:59 06:59 Intake Total 1587 2019 2223 Output Total 1125 0 797 Balance 462 2020 1426 Weight 156.3 kg 164 kg General appearance: PRESENT: no acute distress, morbidly obese Head exam: PRESENT: atraumatic, normocephalic Eye exam: PRESENT: EOMI, PERRLA Ear exam: PRESENT: normal external ear exam, TM's normal bilaterally Mouth exam: PRESENT: moist, neck supple Neck exam: PRESENT: full ROM. ABSENT: JVD, tenderness Respiratory exam: PRESENT: clear to auscultation yamini Cardiovascular exam: PRESENT: RRR. ABSENT: diastolic murmur, systolic murmur Vascular exam: PRESENT: normal capillary refill GI/Abdominal exam: PRESENT: normal bowel sounds, soft. ABSENT: tenderness Musculoskeletal exam: PRESENT: full ROM Neurological exam: PRESENT: other - somnolent Skin exam: PRESENT: normal color Results Laboratory Results: 09/24/17 06:01 09/25/17 06:00 09/24/17 06:01 NT-Pro-B Natriuret Pep 282 Impressions: Chest X-Ray 09/23/17 05:47 IMPRESSION: Bibasilar ground-glass opacities, may represent atelectasis or pneumonia. KUB X-Ray 09/24/17 00:00 IMPRESSION: Few Scattered gas filled bowel loops, nonspecific pattern. Follow- up recommended if persistent concern for developing obstruction. Multiple blastic bone lesions consistent with diffuse metastatic disease. Assessment & Plan - Diagnosis (1) Anemia Qualifiers: Anemia type: unspecified type Qualified Code(s): D64.9 - Anemia, unspecified Is this a current diagnosis for this admission?: Yes Plan: Likely due to chronic disease. Trend. 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 Continue present management. Add muscle relaxer due to neck pain (3) Pneumonia Qualifiers: Pneumonia type: due to unspecified organism Laterality: bilateral Lung location: lower lobe of lung Qualified Code(s): J18.9 - Pneumonia, unspecified organism Is this a current diagnosis for this admission?: Yes Plan: All cultures so far negative. Transitioned to augmentin and levaquin (4) Severe sepsis Plan: Resolved. (5) Nausea & vomiting Is this a current diagnosis for this admission?: Yes Plan: Improved. (6) Diarrhea Is this a current diagnosis for this admission?: Yes Plan: Mild likely due to antibiotic. C. difficile negative. Order stool culture (7) Sleep apnea Qualifiers: Sleep apnea type: obstructive Qualified Code(s): G47.33 - Obstructive sleep apnea (adult) (pediatric) Is this a current diagnosis for this admission?: Yes Plan: Continue BiPAP at bedtime since had been doing well. and patient made aware of importance to follow-up with his primary care provider if needing to change the device that they are using at home since his lifesaving. Cough resolved since on BiPAP (8) Hypokalemia Is this a current diagnosis for this admission?: Yes Plan: Increase oral replacement for the next 24 hours since will be administered calcium gluconate. Trend. (9) Hypomagnesemia Is this a current diagnosis for this admission?: Yes Plan: Continue oral replacement. (10) Cough Is this a current diagnosis for this admission?: Yes Plan: Add [place] (11) Hypocalcemia syndrome Is this a current diagnosis for this admission?: Yes Plan: Order calcium gluconate and trend (12) Morbid obesity due to excess calories Is this a current diagnosis for this admission?: Yes Plan: Advised to not get any more weight since breathing problems may worsen - Time Time Spent with patient: 15-24 minutes Medications reviewed and adjusted accordingly: Yes Anticipated discharge: Home with Homehealth Within: within 24 hours - Inpatient Certification Based on my medical assessment, after consideration of the patient's comorbidities, presenting symptoms, or acuity I expect that the services needed warrant INPATIENT care.: Yes I certify that my determination is in accordance with my understanding of Medicare's requirements for reasonable and necessary INPATIENT services [42 CFR 412.3e].: Yes Medical Necessity: Need Close Monitoring Due to Risk of Patient Decompensation
[2017-09-27] MEDS: CALCIUM CARBONATE 500 MG TAB.CHEW PO SCH (17:14)
[2017-09-27] MEDS: MONTELUKAST SODIUM 10 MG TABLET PO SCH (17:16)
[2017-09-27] MEDS: TIZANIDINE HCL 4 MG TABLET PO SCH (17:16)
[2017-09-27] MEDS: BENZONATATE 100 MG CAPSULE PO SCH (21:20)
[2017-09-28] MEDS: ZOLPIDEM TARTRATE 5 MG TABLET PO PRN ×2 (01:22→21:36)
[2017-09-28] MEDS: AMOXICILLIN TR/POT CLAVULANATE 500-125 MG TAB PO SCH ×3 (05:06→21:36)
[2017-09-28] MEDS: BENZONATATE 100 MG CAPSULE PO SCH ×3 (05:07→21:36)
[2017-09-28] MEDS: POTASSIUM CHLORIDE 10 MEQ TABLET.SA PO SCH (05:07)
[2017-09-28] MEDS: LANSOPRAZOLE 30 MG TAB.RAP.DR PO SCH (05:08)
[2017-09-28 06:47] LABS: ALANINE AMINOTRANSFERASE 36 U/L (21-72); ALBUMIN 2.7 g/dL (3.5-5.0); ALKALINE PHOSPHATASE 39 U/L (38-126); ANION GAP 9 (5-19); ASPARTATE AMINO TRANSFERASE 29 U/L (17-59); BILIRUBIN,DIRECT 0.6 mg/dL (0.0-0.4); BILIRUBIN,TOTAL 0.9 mg/dL (0.2-1.3); BLOOD UREA NITROGEN 12 mg/dL (7-20); CARBON DIOXIDE 25 mmol/L (22-30); CHLORIDE 105 mmol/L (98-107); CREATININE RESULT 1.07 mg/dL (0.52-1.25); GLUCOSE 100 mg/dL (75-110); MAGNESIUM 1.7 mg/dL (1.6-2.3); POTASSIUM 4.2 mmol/L (3.6-5.0); SODIUM 138.6 mmol/L (137-145); TOTAL PROTEIN 5.4 g/dL (6.3-8.2)
[2017-09-28 06:59] LABS: CALCIUM 6.8 mg/dL (8.4-10.2)
[2017-09-28] MEDS ORDERED: NORMAL SALINE IV ONE (07:24)
[2017-09-28] MEDS ORDERED: CALCIUM GLUCONATE IV ONE (07:24)
[2017-09-28] MEDS: FONDAPARINUX SODIUM INJ 2.5 MG/0.5 ML DISP.SYRIN SUBCUT SCH (07:44)
[2017-09-28] MEDS: IPRATROPIUM/ALBUTEROL 0.5-2.5 MG/3 ML AMPUL NEB SCH ×3 (08:38→20:32)
[2017-09-28] MEDS: CHOLECALCIFEROL (D3) 1,000 UNIT TABLET PO SCH (10:05)
[2017-09-28] MEDS: LACTOBACILLUS ACIDOPHILUS 250 MG TAB PO SCH ×2 (10:05→17:22)
[2017-09-28] MEDS: TAMSULOSIN HCL 0.4 MG CAP.SR.24H PO SCH (10:05)
[2017-09-28] MEDS: MAGNESIUM OXIDE 400 MG TABLET PO SCH ×2 (10:05→21:37)
[2017-09-28] MEDS: ARIPIPRAZOLE 5 MG TABLET PO SCH (10:06)
[2017-09-28] MEDS: CALCIUM CARBONATE 500 MG TAB.CHEW PO SCH ×2 (10:06→17:21)
[2017-09-28] MEDS: DUTASTERIDE 0.5 MG CAPSULE PO SCH (10:06)
[2017-09-28] MEDS: TIZANIDINE HCL 4 MG TABLET PO SCH ×2 (10:06→17:21)
[2017-09-28] MEDS: FLUTICASONE/SALMETEROL DISKUS 250-50 MCG/DOSE IH SCH ×2 (10:07→22:31)
[2017-09-28] MEDS: NYSTATIN TOPICAL POWDER 15 GM TP SCH ×2 (10:07→17:21)
[2017-09-28] MEDS: DOCUSATE SODIUM 100 MG CAPSULE PO SCH (10:08)
[2017-09-28] MEDS ORDERED: METHYLPREDNISOLONE INJ 40 MG/1 ML SDV IV ONE (14:00)
[2017-09-28] MEDS: NYSTATIN 500000 UNIT/5 ML UDCUP PO SCH ×3 (14:55→21:37)
[2017-09-28] MEDS: PANTOT AC/MIN OIL/PET HY-PHL OINT 50 GM TOP SCH ×2 (15:37→17:21)
[2017-09-28] MEDS: LEVOFLOXACIN 500 MG TABLET PO SCH (15:37)
[2017-09-28] MEDS: MONTELUKAST SODIUM 10 MG TABLET PO SCH (17:21)
[2017-09-28] MEDS ORDERED: METHYLPREDNISOLONE INJ 40 MG/1 ML SDV IV SCH (22:00)
[2017-09-29] MEDS: OXYCODONE-ACETAMINOPHEN 5-325 MG TABLET PO PRN ×2 (00:50→21:39)
[2017-09-29] MEDS ORDERED: FUROSEMIDE INJ/PF 20 MG/2 ML SDV IV ONE (02:10)
--- NOTE | 2017-09-29 02:27 | PDOC PROGRESS REPORT ---
Subjective Progress Note for:: 09/28/17 Subjective:: Patient complains of cough which is non productive. Nurse reported thrush and itchiness due to psoriasis Reason For Visit: SEVERE SEPSIS NEUTROPENIC FEVER Physical Exam Vital Signs: Temp Pulse Resp BP Pulse Ox 98.4 F 95 20 93/67 L 98 09/27/17 23:33 09/28/17 02:00 09/27/17 23:33 09/27/17 23:33 09/28/17 00:00 Intake & Output 09/26/17 09/27/17 09/28/17 06:59 06:59 06:59 Intake Total 2019 2523 927 Output Total 0 797 725 Balance 2019 1726 202 Weight 164 kg 170 kg General appearance: PRESENT: no acute distress, cooperative, morbidly obese Head exam: PRESENT: atraumatic, normocephalic Eye exam: PRESENT: EOMI, PERRLA Ear exam: PRESENT: TM's normal bilaterally Mouth exam: PRESENT: moist Neck exam: PRESENT: full ROM. ABSENT: JVD, tenderness Respiratory exam: PRESENT: clear to auscultation yamini - difficult ausculatation due to poor inspiratory effort Cardiovascular exam: PRESENT: RRR. ABSENT: diastolic murmur, systolic murmur Vascular exam: PRESENT: normal capillary refill GI/Abdominal exam: PRESENT: normal bowel sounds, soft. ABSENT: tenderness Extremities exam: PRESENT: pedal edema. ABSENT: joint swelling Musculoskeletal exam: PRESENT: full ROM Neurological exam: PRESENT: alert, oriented to person, oriented to place, oriented to time, CN II-XII grossly intact Psychiatric exam: PRESENT: appropriate affect, normal mood Results Laboratory Results: 09/27/17 05:20 09/27/17 06:38 09/27/17 09/27/17 09/27/17 05:20 05:20 06:38 WBC 5.8 RBC 3.22 L Hgb 9.9 L Hct 29.0 L MCV 90 MCH 30.7 MCHC 34.1 RDW 16.5 H Plt Count 229 Seg Neutrophils % 59.7 Lymphocytes % 20.7 Monocytes % 16.8 H Eosinophils % 2.3 Basophils % 0.5 Absolute Neutrophils 3.5 Absolute Lymphocytes 1.2 Absolute Monocytes 1.0 Absolute Eosinophils 0.1 Absolute Basophils 0.0 Sodium Cancelled 138.5 Potassium Cancelled 3.3 L Chloride Cancelled 105 Carbon Dioxide Cancelled 22 Anion Gap Cancelled 12 BUN Cancelled 11 Creatinine Cancelled 1.02 Est GFR ( Amer) Cancelled > 60 Est GFR (Non-Af Amer) Cancelled > 60 Glucose Cancelled 92 Calcium Cancelled 5.9 L* Magnesium Cancelled 1.6 09/24/17 06:01 NT-Pro-B Natriuret Pep 282 Impressions: Chest X-Ray 09/23/17 05:47 IMPRESSION: Bibasilar ground-glass opacities, may represent atelectasis or pneumonia. KUB X-Ray 09/24/17 00:00 IMPRESSION: Few Scattered gas filled bowel loops, nonspecific pattern. Follow- up recommended if persistent concern for developing obstruction. Multiple blastic bone lesions consistent with diffuse metastatic disease. Assessment & Plan - Diagnosis (1) Anemia Qualifiers: Anemia type: unspecified type Qualified Code(s): D64.9 - Anemia, unspecified Is this a current diagnosis for this admission?: Yes Plan: Likely due to chronic disease. Trend. 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 Continue present management. (3) Pneumonia Qualifiers: Pneumonia type: due to unspecified organism Laterality: bilateral Lung location: lower lobe of lung Qualified Code(s): J18.9 - Pneumonia, unspecified organism Is this a current diagnosis for this admission?: Yes Plan: All cultures so far negative. Continue augmentin and levaquin (4) Severe sepsis Plan: Resolved. (5) Nausea & vomiting Qualifiers: Vomiting type: unspecified Vomiting Intractability: unspecified Qualified Code(s): R11.2 - Nausea with vomiting, unspecified Is this a current diagnosis for this admission?: Yes Plan: Improved. (6) Diarrhea Is this a current diagnosis for this admission?: Yes Plan: Mild likely due to antibiotic. C. difficile negative. Pending stool culture (7) Sleep apnea Qualifiers: Sleep apnea type: obstructive Qualified Code(s): G47.33 - Obstructive sleep apnea (adult) (pediatric) Is this a current diagnosis for this admission?: Yes Plan: Continue BiPAP at bedtime since had been doing well. Will order lasix x 1 dose to see if can improve cough since suspect elevated pulmonary pressures as the culprit. Will consider ABG. (8) Hypokalemia Is this a current diagnosis for this admission?: Yes Plan: Replaced. Trend (9) Hypomagnesemia Is this a current diagnosis for this admission?: Yes Plan: Continue oral replacement. Trend (10) Cough Is this a current diagnosis for this admission?: Yes Plan: Trial of lasix IV since may be due to pulmonary hypertension. Patient body habitus may make echocardiogram difficult to read but will order, (11) Hypocalcemia syndrome Is this a current diagnosis for this admission?: Yes Plan: Coninuereplacing IV/PO and trend (12) Morbid obesity due to excess calories Is this a current diagnosis for this admission?: Yes Plan: Advised to not get any more weight since breathing problems may worsen (13) Psoriasis Is this a current diagnosis for this admission?: Yes Plan: Order solumedrol IV since wide area to cover with topical steroids. Also order emollient (14) Thrush, oral Is this a current diagnosis for this admission?: Yes Plan: Order oral nystatin - Time Time Spent with patient: 15-24 minutes Medications reviewed and adjusted accordingly: Yes Within: within 48 hours - Inpatient Certification Based on my medical assessment, after consideration of the patient's comorbidities, presenting symptoms, or acuity I expect that the services needed warrant INPATIENT care.: Yes I certify that my determination is in accordance with my understanding of Medicare's requirements for reasonable and necessary INPATIENT services [42 CFR 412.3e].: Yes
[2017-09-29] MEDS: AMOXICILLIN TR/POT CLAVULANATE 500-125 MG TAB PO SCH (05:21)
[2017-09-29] MEDS: BENZONATATE 100 MG CAPSULE PO SCH ×3 (05:21→21:38)
[2017-09-29] MEDS: LANSOPRAZOLE 30 MG TAB.RAP.DR PO SCH (05:21)
[2017-09-29] MEDS: FONDAPARINUX SODIUM INJ 2.5 MG/0.5 ML DISP.SYRIN SUBCUT SCH (07:41)
[2017-09-29] MEDS: IPRATROPIUM/ALBUTEROL 0.5-2.5 MG/3 ML AMPUL NEB SCH ×3 (08:56→20:42)
[2017-09-29] MEDS ORDERED: ALPRAZOLAM 0.25 MG TABLET PO PRN (09:55)
[2017-09-29] MEDS: DOCUSATE SODIUM 100 MG CAPSULE PO SCH (10:26)
[2017-09-29] MEDS: LACTOBACILLUS ACIDOPHILUS 250 MG TAB PO SCH ×2 (10:26→17:37)
[2017-09-29] MEDS: DUTASTERIDE 0.5 MG CAPSULE PO SCH (10:27)
[2017-09-29] MEDS: ARIPIPRAZOLE 5 MG TABLET PO SCH (10:27)
[2017-09-29] MEDS: CHOLECALCIFEROL (D3) 1,000 UNIT TABLET PO SCH (10:27)
[2017-09-29] MEDS: TAMSULOSIN HCL 0.4 MG CAP.SR.24H PO SCH (10:28)
[2017-09-29] MEDS: MAGNESIUM OXIDE 400 MG TABLET PO SCH ×2 (10:28→21:40)
[2017-09-29] MEDS: LORATADINE 10 MG TABLET PO SCH (10:28)
[2017-09-29] MEDS: TIZANIDINE HCL 4 MG TABLET PO SCH ×2 (10:28→17:38)
[2017-09-29] MEDS: FUROSEMIDE INJ/PF 20 MG/2 ML SDV IV SCH ×2 (10:28→21:37)
[2017-09-29] MEDS: FLUTICASONE/SALMETEROL DISKUS 250-50 MCG/DOSE IH SCH ×2 (10:29→23:26)
[2017-09-29] MEDS: POTASSIUM CHLORIDE 10 MEQ TABLET.SA PO SCH ×2 (10:29→21:38)
[2017-09-29] MEDS: CALCIUM CARBONATE 500 MG TAB.CHEW PO SCH ×2 (10:29→17:38)
[2017-09-29] MEDS: NYSTATIN 500000 UNIT/5 ML UDCUP PO SCH ×4 (10:29→23:40)
[2017-09-29] MEDS: PANTOT AC/MIN OIL/PET HY-PHL OINT 50 GM TOP SCH ×3 (10:30→17:39)
[2017-09-29] MEDS: NYSTATIN TOPICAL POWDER 15 GM TP SCH ×2 (10:30→17:38)
[2017-09-29] MEDS: ONDANSETRON HCL INJ/PF 4 MG/2 ML SDV IV PRN (11:45)
--- NOTE | 2017-09-29 12:56 | XCELERA REPORT ---
[address] [address] Transthoracic Echocardiogram Report Name: SARAH CORADO JR Age: 76 yrs Gender: Male : 1940 Patient Status: Inpatient Patient Location: [address] [place] [address] Study Date: 09/29/2017 09:04 AM Height: 71 in Weight: 377 lb BSA: 2.8 m2 Procedure: A two-dimensional transthoracic echocardiogram with color flow and Doppler was performed. The study was technically limited with all images being suboptimal in quality. Images were not obtained from all of the standard acoustic windows due to the limited scope of the study. Reason For Study: PULMONARY HYPERTENSION History: PULMONARY HYPERTENSION. Ordering Physician: TONYA APONTE Performed By: La Chang Interpretation Summary The left ventricle is normal in size. There is normal left ventricular wall thickness. No True 2 chamber apical views obtained.Hence cannot comment on the apical and basal anterior santamaria, and the apical and basal inferior santamaria.The mid anterior and the mid inferior and the rest of the santamaria contract normallyIn the limitedd views LVEF is > than 65%. Doppler measurements suggest impaired left ventricular relaxation, which is associated with grade I/IV or mild diastolic dysfunction The left atrial size is normal. There is no evidence of mitral valve prolapse. There is no vegetation seen on the mitral valve. There is no mitral valve stenosis. There is no mitral regurgitation noted. There is Aortic Sclerosi without Stenosis. There is no LVOT obstruction. No aortic regurgitation is present. There is no tricuspid stenosis. There is a mild amount of tricuspid regurgitation There is mild pulmonary hypertension by echo RVSP is 42 mm of Hg , with RA mean of 10. There is no pulmonic valvular stenosis. There is a trace amount of pulmonic regurgitation The aortic root is normal size. There is no pericardial effusion. MMode/2D Measurements & Calculations RVDd: 2.6 cm LVIDd: 4.9 cm FS: 46.9 % Ao root diam: 3.2 cm IVSd: 0.82 cm LVIDs: 2.6 cm EDV(Teich): 111.1 ml LVPWd: 1.0 cm ESV(Teich): 24.2 ml Ao root area: 7.9 cm2 EF(Teich): 78.2 % LA dimension: 3.1 cm Doppler Measurements & Calculations MV E max lexi: MV P1/2t max lexi: Ao V2 max: LV V1 max P.0 cm/sec 80.5 cm/sec 154.2 cm/sec 4.4 mmHg MV A max lexi: MV P1/2t: 51.5 msec Ao max PG: LV V1 max: 95.3 cm/sec 9.5 mmHg 104.6 cm/sec MV E/A: 0.84 MVA(P1/2t): 4.3 cm2 MV dec slope: 457.7 cm/sec2 PA V2 max: TR max lexi: 93.8 cm/sec 283.7 cm/sec PA max PG: TR max P.2 mmHg 3.5 mmHg Left Ventricle The left ventricle is normal in size. There is normal left ventricular wall thickness. No True 2 chamber apical views obtained.Hence cannot comment on the apical and basal anterior santamaria, and the apical and basal inferior santamaria.The mid anterior and the mid inferior and the rest of the santamaria contract normallyIn the limitedd views LVEF is > than 65%. Doppler measurements suggest impaired left ventricular relaxation, which is associated with grade I/IV or mild diastolic dysfunction. Right Ventricle The right ventricular apex is not well visualized. Atria Right atrium not well visualized secondary to technical limitations. The left atrial size is normal. Mitral Valve There is no evidence of mitral valve prolapse. There is no vegetation seen on the mitral valve. There is no mitral valve stenosis. There is no mitral regurgitation noted. Aortic Valve There is no aortic valvular vegetation. There is Aortic Sclerosi without Stenosis. There is no LVOT obstruction. No aortic regurgitation is present. Tricuspid Valve There is no tricuspid stenosis. There is a mild amount of tricuspid regurgitation. There is mild pulmonary hypertension by echo. RVSP is 42 mm of Hg , with RA mean of 10. Pulmonic Valve There is no pulmonic valvular stenosis. There is a trace amount of pulmonic regurgitation. Great Vessels The aortic root is normal size. Effusions There is no pericardial effusion. : TONYA APONTE > Elissa Trevizo
--- NOTE | 2017-09-29 13:08 | PDOC PROGRESS REPORT ---
Subjective Progress Note for:: 09/29/17 Subjective:: Patient complains of itchiness. relates that the cough is gone. Diarrhea is better ROS All organ systems evaluated and negative except as seen subjective All significant laboratories and diagnostics have been reviewed Reason For Visit: SEVERE SEPSIS NEUTROPENIC FEVER Physical Exam Vital Signs: Temp Pulse Resp BP Pulse Ox 99.5 F 90 17 92/49 L 100 09/29/17 01:27 09/29/17 02:00 09/29/17 01:27 09/29/17 01:27 09/29/17 01:27 Intake & Output 09/27/17 09/28/17 09/29/17 06:59 06:59 06:59 Intake Total 2523 1167 1355 Output Total 797 1050 325 Balance 6399 233 6408 Weight 170 kg 171.2 kg General appearance: PRESENT: no acute distress, cooperative, morbidly obese Head exam: PRESENT: atraumatic, normocephalic Eye exam: PRESENT: EOMI, PERRLA Ear exam: PRESENT: normal external ear exam Mouth exam: PRESENT: moist Neck exam: PRESENT: full ROM, JVD, tenderness Respiratory exam: PRESENT: clear to auscultation yamini Cardiovascular exam: PRESENT: RRR. ABSENT: diastolic murmur, systolic murmur Vascular exam: PRESENT: normal capillary refill GI/Abdominal exam: PRESENT: distended, normal bowel sounds, soft. ABSENT: tenderness Extremities exam: PRESENT: pedal edema. ABSENT: joint swelling Musculoskeletal exam: PRESENT: full ROM Neurological exam: PRESENT: alert, awake, oriented to person, oriented to place , oriented to time Psychiatric exam: PRESENT: anxious Skin exam: PRESENT: normal color, other - Psoriasis plaques noted throughout Results Laboratory Results: 09/27/17 05:20 09/28/17 05:51 09/28/17 05:51 Sodium 138.6 Potassium 4.2 Chloride 105 Carbon Dioxide 25 Anion Gap 9 BUN 12 Creatinine 1.07 Est GFR ( Amer) > 60 Est GFR (Non-Af Amer) > 60 Glucose 100 Calcium 6.8 L* Magnesium 1.7 Total Bilirubin 0.9 AST 29 ALT 36 Alkaline Phosphatase 39 Total Protein 5.4 L Albumin 2.7 L 09/24/17 06:01 NT-Pro-B Natriuret Pep 282 Impressions: Chest X-Ray 09/23/17 05:47 IMPRESSION: Bibasilar ground-glass opacities, may represent atelectasis or pneumonia. KUB X-Ray 09/24/17 00:00 IMPRESSION: Few Scattered gas filled bowel loops, nonspecific pattern. Follow- up recommended if persistent concern for developing obstruction. Multiple blastic bone lesions consistent with diffuse metastatic disease. Assessment & Plan - Diagnosis (1) Anemia Qualifiers: Anemia type: unspecified type Qualified Code(s): D64.9 - Anemia, unspecified Is this a current diagnosis for this admission?: Yes Plan: Likely due to chronic disease. Trend. 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 Continue present management. (3) Pneumonia Qualifiers: Pneumonia type: due to unspecified organism Laterality: bilateral Lung location: lower lobe of lung Qualified Code(s): J18.9 - Pneumonia, unspecified organism Is this a current diagnosis for this admission?: Yes Plan: All cultures so far negative. Discontinue augmentin and levaquin. Since may be exacerbating psoriasis. Will repeat chest x-ray (4) Severe sepsis Plan: Resolved. (5) Nausea & vomiting Qualifiers: Vomiting type: unspecified Vomiting Intractability: unspecified Qualified Code(s): R11.2 - Nausea with vomiting, unspecified Is this a current diagnosis for this admission?: Yes Plan: Improved. (6) Diarrhea Is this a current diagnosis for this admission?: Yes Plan: Mild likely due to antibiotic. C. difficile negative. Stool culture negative for bacteria but positive for Lisa albicans. Patient already on nystatin (7) Sleep apnea Qualifiers: Sleep apnea type: obstructive Qualified Code(s): G47.33 - Obstructive sleep apnea (adult) (pediatric) Is this a current diagnosis for this admission?: Yes Plan: Continue BiPAP at bedtime since had been doing well. Will place patient on Lasix IV since echocardiogram demonstrating mild pulmonary hypertension and patient on the overall looks that he may be having a right sided heart failure component although not documented in echocardiogram (8) Hypokalemia Is this a current diagnosis for this admission?: Yes Plan: Replaced. To place on oral supplementation since will be on scheduled Lasix IV. Trend (9) Hypomagnesemia Is this a current diagnosis for this admission?: Yes Plan: Continue oral replacement. Trend (10) Cough Is this a current diagnosis for this admission?: Yes Plan: To place on lasix IV since may be due to pulmonary hypertension. (11) Hypocalcemia syndrome Is this a current diagnosis for this admission?: Yes Plan: Coninuereplacing IV/PO and trend (12) Morbid obesity due to excess calories Is this a current diagnosis for this admission?: Yes Plan: Advised to not get any more weight since breathing problems may worsen (13) Psoriasis Is this a current diagnosis for this admission?: Yes Plan: Increase solumedrol IV since wide area to cover with topical steroids. Continue emollient.May be exacerbated because of newly introduced medications including antibiotics (14) Thrush, oral Is this a current diagnosis for this admission?: Yes Plan: Continue oral nystatin - Time Time Spent with patient: 15-24 minutes Medications reviewed and adjusted accordingly: Yes Anticipated discharge: Home Within: within 48 hours - Inpatient Certification Based on my medical assessment, after consideration of the patient's comorbidities, presenting symptoms, or acuity I expect that the services needed warrant INPATIENT care.: Yes I certify that my determination is in accordance with my understanding of Medicare's requirements for reasonable and necessary INPATIENT services [42 CFR 412.3e].: Yes Medical Necessity: Need for Nebulizer Therapy and Monitoring of Response
[2017-09-29 13:13] LABS: ALANINE AMINOTRANSFERASE 35 U/L (21-72); ALBUMIN 2.7 g/dL (3.5-5.0); ALKALINE PHOSPHATASE 41 U/L (38-126); ANION GAP 9 (5-19); ASPARTATE AMINO TRANSFERASE 32 U/L (17-59); BILIRUBIN,DIRECT 0.6 mg/dL (0.0-0.4); BILIRUBIN,TOTAL 0.7 mg/dL (0.2-1.3); BLOOD UREA NITROGEN 12 mg/dL (7-20); CALCIUM 7.8 mg/dL (8.4-10.2); CARBON DIOXIDE 22 mmol/L (22-30); CHLORIDE 105 mmol/L (98-107); CREATININE RESULT 0.95 mg/dL (0.52-1.25); GLUCOSE 155 mg/dL (75-110); MAGNESIUM 1.7 mg/dL (1.6-2.3); POTASSIUM 4.7 mmol/L (3.6-5.0); SODIUM 136.2 mmol/L (137-145); TOTAL PROTEIN 5.3 g/dL (6.3-8.2)
[2017-09-29] MEDS: METHYLPREDNISOLONE INJ 40 MG/1 ML SDV IV SCH ×2 (13:21→21:37)
[2017-09-29] MEDS: MONTELUKAST SODIUM 10 MG TABLET PO SCH (17:38)
--- NOTE | 2017-09-29 21:29 | RADIOLOGY REPORT (SQ) ---
EXAM DESCRIPTION: CHEST PA/LAT COMPLETED DATE/TIME: 09/29/2017 9:19 pm REASON FOR STUDY: follow up pnuemonia COMPARISON: None. EXAM PARAMETERS: NUMBER OF VIEWS: two views TECHNIQUE: Digital Frontal and Lateral radiographic views of the chest acquired. RADIATION DOSE: NA LIMITATIONS: none FINDINGS: LUNGS AND PLEURA: No opacities, masses or pneumothorax. No pleural effusion. MEDIASTINUM AND HILAR STRUCTURES: No masses or contour abnormalities. HEART AND VASCULAR STRUCTURES: Heart normal size. No evidence for failure. BONES: No acute findings. HARDWARE: None in the chest. OTHER: No other significant finding. IMPRESSION: NO ACUTE RADIOGRAPHIC FINDING IN THE CHEST. Pneumonia cleared. TECHNICAL DOCUMENTATION: JOB ID: [id number] [employer]- All Rights Reserved
[2017-09-29] MEDS: ZOLPIDEM TARTRATE 5 MG TABLET PO PRN (23:24)
[2017-09-30] MEDS: OXYCODONE-ACETAMINOPHEN 5-325 MG TABLET PO PRN ×2 (01:45→06:38)
[2017-09-30] MEDS: METHYLPREDNISOLONE INJ 40 MG/1 ML SDV IV SCH ×3 (06:39→21:25)
[2017-09-30] MEDS: BENZONATATE 100 MG CAPSULE PO SCH ×3 (06:39→21:25)
[2017-09-30] MEDS: LANSOPRAZOLE 30 MG TAB.RAP.DR PO SCH ×2 (06:39→17:41)
[2017-09-30 07:22] LABS: HEMATOCRIT 28.7 % (37.9-51.0); HEMOGLOBIN 9.6 g/dL (13.5-17.0); HGB HCT DIFFERENCE 0.1; MEAN CORPUSCULAR HEMOGLOBIN 30.4 pg (27.0-33.4); MEAN CORPUSCULAR HGB CONC 33.3 g/dL (32.0-36.0); MEAN CORPUSCULAR VOLUME 91 fl (80-97); RED BLOOD COUNT 3.16 10^6/uL (4.35-5.55); WHITE BLOOD COUNT 12.8 10^3/uL (4.0-10.5)
[2017-09-30 07:36] LABS: ALANINE AMINOTRANSFERASE 38 U/L (21-72); ALBUMIN 2.8 g/dL (3.5-5.0); ALKALINE PHOSPHATASE 39 U/L (38-126); ANION GAP 14 (5-19); ASPARTATE AMINO TRANSFERASE 30 U/L (17-59); BILIRUBIN,DIRECT 0.4 mg/dL (0.0-0.4); BILIRUBIN,TOTAL 0.5 mg/dL (0.2-1.3); BLOOD UREA NITROGEN 13 mg/dL (7-20); CALCIUM 7.6 mg/dL (8.4-10.2); CARBON DIOXIDE 20 mmol/L (22-30); CHLORIDE 103 mmol/L (98-107); CREATININE RESULT 1.08 mg/dL (0.52-1.25); GLUCOSE 180 mg/dL (75-110); POTASSIUM 4.4 mmol/L (3.6-5.0); SODIUM 136.6 mmol/L (137-145); TOTAL PROTEIN 5.3 g/dL (6.3-8.2)
[2017-09-30] MEDS: IPRATROPIUM/ALBUTEROL 0.5-2.5 MG/3 ML AMPUL NEB SCH ×3 (07:43→20:17)
[2017-09-30 08:09] LABS: BAND NEUTROPHILS % (MANUAL) 1 % (3-5); BASOPHILS % (MANUAL) 0 % (0-2); EOSINOPHILS % (MANUAL) 0 % (0-6); LYMPHOCYTES % (MANUAL) 3 % (13-45); TOTAL CELLS COUNTED 100
[2017-09-30 08:12] LABS: ANISOCYTOSIS 1+; BURR CELLS SLIGHT; HYPOCHROMASIA 1+; OVALOCYTES 1+; POIKILOCYTOSIS 1+; TARGET CELLS SLIGHT
[2017-09-30] MEDS: FONDAPARINUX SODIUM INJ 2.5 MG/0.5 ML DISP.SYRIN SUBCUT SCH (08:28)
[2017-09-30] MEDS: FLUTICASONE/SALMETEROL DISKUS 250-50 MCG/DOSE IH SCH ×2 (10:06→21:25)
[2017-09-30] MEDS: DUTASTERIDE 0.5 MG CAPSULE PO SCH (10:07)
[2017-09-30] MEDS ORDERED: FUROSEMIDE INJ/PF 20 MG/2 ML SDV IV SCH (10:07)
[2017-09-30] MEDS: PANTOT AC/MIN OIL/PET HY-PHL OINT 50 GM TOP SCH ×3 (10:07→17:40)
[2017-09-30] MEDS: LORATADINE 10 MG TABLET PO SCH (10:08)
[2017-09-30] MEDS: TIZANIDINE HCL 4 MG TABLET PO SCH ×2 (10:09→17:41)
[2017-09-30] MEDS: POTASSIUM CHLORIDE 10 MEQ TABLET.SA PO SCH ×2 (10:10→21:25)
[2017-09-30] MEDS: CHOLECALCIFEROL (D3) 1,000 UNIT TABLET PO SCH (10:12)
[2017-09-30] MEDS: MAGNESIUM OXIDE 400 MG TABLET PO SCH ×2 (10:14→21:26)
[2017-09-30] MEDS: TAMSULOSIN HCL 0.4 MG CAP.SR.24H PO SCH (10:15)
[2017-09-30] MEDS: CALCIUM CARBONATE 500 MG TAB.CHEW PO SCH ×2 (10:16→17:41)
[2017-09-30] MEDS: ARIPIPRAZOLE 5 MG TABLET PO SCH (10:17)
[2017-09-30] MEDS: NYSTATIN 500000 UNIT/5 ML UDCUP PO SCH ×4 (10:19→21:25)
[2017-09-30] MEDS: NYSTATIN TOPICAL POWDER 15 GM TP SCH ×2 (10:20→17:40)
[2017-09-30] MEDS: LACTOBACILLUS ACIDOPHILUS 250 MG TAB PO SCH ×2 (10:20→17:41)
[2017-09-30] MEDS: DOCUSATE SODIUM 100 MG CAPSULE PO SCH (10:21)
[2017-09-30] MEDS ORDERED: FUROSEMIDE INJ/PF 40 MG/4 ML SDV IV ONE (12:00)
[2017-09-30 13:11] LABS: ARTERIAL BLOOD O2 SATURATION 96.9 % (94-98)
--- NOTE | 2017-09-30 15:54 | PDOC PROGRESS REPORT ---
Subjective Progress Note for:: 09/30/17 Subjective:: Patient complains of itchiness and wanted to go home. is concerned because growth are soaked with water on the left side of his body Nurse reports that patient still having neck pain ROS All organ systems evaluated and negative except as in subjective All significant laboratories and diagnostics have been reviewed Reason For Visit: SEVERE SEPSIS NEUTROPENIC FEVER Physical Exam Vital Signs: Temp Pulse Resp BP Pulse Ox 98.4 F 96 16 128/81 H 100 09/30/17 00:22 09/30/17 00:22 09/30/17 00:22 09/30/17 00:22 09/30/17 00:22 Intake & Output 09/28/17 09/29/17 09/30/17 06:59 06:59 06:59 Intake Total 1167 1355 1394 Output Total 1050 1300 425 Balance 117 55 969 Weight 171.2 kg 173.8 kg General appearance: PRESENT: no acute distress, cooperative, morbidly obese Head exam: PRESENT: atraumatic, normocephalic Eye exam: PRESENT: EOMI, PERRLA Ear exam: PRESENT: normal external ear exam Mouth exam: PRESENT: moist, neck supple Neck exam: PRESENT: full ROM. ABSENT: JVD, tenderness Respiratory exam: PRESENT: clear to auscultation yamini Cardiovascular exam: PRESENT: RRR. ABSENT: diastolic murmur, systolic murmur Vascular exam: PRESENT: normal capillary refill GI/Abdominal exam: PRESENT: distended, normal bowel sounds, soft, other - Edema mostly localized to the costal vertebral angle and back.. ABSENT: tenderness Extremities exam: PRESENT: other - Edema extending all the way up to the back. ABSENT: joint swelling Musculoskeletal exam: PRESENT: full ROM. ABSENT: deformity Neurological exam: PRESENT: alert, oriented to person, oriented to place, oriented to time Skin exam: PRESENT: other - Plaques noted throughout Results Laboratory Results: 09/27/17 05:20 09/29/17 11:27 09/29/17 11:27 Sodium 136.2 L Potassium 4.7 Chloride 105 Carbon Dioxide 22 Anion Gap 9 BUN 12 Creatinine 0.95 Est GFR ( Amer) > 60 Est GFR (Non-Af Amer) > 60 Glucose 155 H Calcium 7.8 L Magnesium 1.7 Total Bilirubin 0.7 AST 32 ALT 35 Alkaline Phosphatase 41 Total Protein 5.3 L Albumin 2.7 L 09/24/17 06:01 NT-Pro-B Natriuret Pep 282 Impressions: KUB X-Ray 09/24/17 00:00 IMPRESSION: Few Scattered gas filled bowel loops, nonspecific pattern. Follow- up recommended if persistent concern for developing obstruction. Multiple blastic bone lesions consistent with diffuse metastatic disease. Chest X-Ray 09/29/17 00:00 IMPRESSION: NO ACUTE RADIOGRAPHIC FINDING IN THE CHEST. Pneumonia cleared. Assessment & Plan - Diagnosis (1) Anemia Qualifiers: Anemia type: unspecified type Qualified Code(s): D64.9 - Anemia, unspecified Is this a current diagnosis for this admission?: Yes Plan: Likely due to chronic disease. Trend. 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 Continue present management. (3) Pneumonia Qualifiers: Pneumonia type: due to unspecified organism Laterality: bilateral Lung location: lower lobe of lung Qualified Code(s): J18.9 - Pneumonia, unspecified organism Is this a current diagnosis for this admission?: Yes Plan: All cultures so far negative. Off augmentin and levaquin. Since may be exacerbating psoriasis. CXR cleared. (4) Severe sepsis Plan: Resolved. (5) Nausea & vomiting Qualifiers: Vomiting type: unspecified Vomiting Intractability: unspecified Qualified Code(s): R11.2 - Nausea with vomiting, unspecified Is this a current diagnosis for this admission?: Yes Plan: Improved. (6) Diarrhea Is this a current diagnosis for this admission?: Yes Plan: Mild likely due to antibiotic. C. difficile negative. Stool culture negative for bacteria but positive for Lisa albicans. Patient already on nystatin (7) Sleep apnea Qualifiers: Sleep apnea type: obstructive Qualified Code(s): G47.33 - Obstructive sleep apnea (adult) (pediatric) Is this a current diagnosis for this admission?: Yes Plan: Continue BiPAP. (8) Hypokalemia Is this a current diagnosis for this admission?: Yes Plan: Continue oral supplementation since on higher dose of Lasix (9) Hypomagnesemia Is this a current diagnosis for this admission?: Yes Plan: Continue oral replacement. Trend (10) Cough Is this a current diagnosis for this admission?: Yes Plan: Improvement since on Lasix (11) Hypocalcemia syndrome Is this a current diagnosis for this admission?: Yes Plan: Replaced.Continue with oral replacement trend (12) Morbid obesity due to excess calories Is this a current diagnosis for this admission?: Yes Plan: Advised to not get any more weight since breathing problems may worsen (13) Psoriasis Is this a current diagnosis for this admission?: Yes Plan: Increase solumedrol IV since wide area to cover with topical steroids. Continue emollient.May be exacerbated because of newly introduced medications including antibiotics (14) Thrush, oral Is this a current diagnosis for this admission?: Yes Plan: Continue oral nystatin (15) Pulmonary hypertension Is this a current diagnosis for this admission?: Yes Plan: Encourage use of BiPAP (16) Anasarca Is this a current diagnosis for this admission?: Yes Plan: Increase Lasix IV - Time Time Spent with patient: 15-24 minutes Medications reviewed and adjusted accordingly: Yes Anticipated discharge: Home Within: within 72 hours - Inpatient Certification Based on my medical assessment, after consideration of the patient's comorbidities, presenting symptoms, or acuity I expect that the services needed warrant INPATIENT care.: Yes I certify that my determination is in accordance with my understanding of Medicare's requirements for reasonable and necessary INPATIENT services [42 CFR 412.3e].: Yes Medical Necessity: Need Close Monitoring Due to Risk of Patient Decompensation, Other - IV Lasix
[2017-09-30] MEDS: MONTELUKAST SODIUM 10 MG TABLET PO SCH (17:41)
[2017-09-30] MEDS: FUROSEMIDE INJ/PF 40 MG/4 ML SDV IV SCH (21:25)
[2017-10-01 05:52] LABS: ANION GAP 11 (5-19); BLOOD UREA NITROGEN 14 mg/dL (7-20); CALCIUM 7.4 mg/dL (8.4-10.2); CARBON DIOXIDE 21 mmol/L (22-30); CHLORIDE 106 mmol/L (98-107); CREATININE RESULT 1.06 mg/dL (0.52-1.25); GLUCOSE 174 mg/dL (75-110); MAGNESIUM 1.8 mg/dL (1.6-2.3); POTASSIUM 4.9 mmol/L (3.6-5.0); SODIUM 137.7 mmol/L (137-145)
[2017-10-01] MEDS: METHYLPREDNISOLONE INJ 40 MG/1 ML SDV IV SCH ×3 (05:53→23:40)
[2017-10-01] MEDS: BENZONATATE 100 MG CAPSULE PO SCH ×3 (05:53→23:40)
[2017-10-01] MEDS: LANSOPRAZOLE 30 MG TAB.RAP.DR PO SCH ×2 (05:54→17:32)
[2017-10-01] MEDS: IPRATROPIUM/ALBUTEROL 0.5-2.5 MG/3 ML AMPUL NEB SCH ×3 (07:30→19:56)
[2017-10-01] MEDS: FONDAPARINUX SODIUM INJ 2.5 MG/0.5 ML DISP.SYRIN SUBCUT SCH (08:03)
[2017-10-01] MEDS: PANTOT AC/MIN OIL/PET HY-PHL OINT 50 GM TOP SCH ×3 (08:46→17:31)
[2017-10-01] MEDS: NYSTATIN TOPICAL POWDER 15 GM TP SCH ×2 (08:46→17:32)
[2017-10-01] MEDS: FUROSEMIDE INJ/PF 40 MG/4 ML SDV IV SCH ×2 (09:12→17:31)
[2017-10-01] MEDS: FLUTICASONE/SALMETEROL DISKUS 250-50 MCG/DOSE IH SCH ×2 (09:12→23:41)
[2017-10-01] MEDS: DUTASTERIDE 0.5 MG CAPSULE PO SCH (09:13)
[2017-10-01] MEDS: CHOLECALCIFEROL (D3) 1,000 UNIT TABLET PO SCH (09:14)
[2017-10-01] MEDS: POTASSIUM CHLORIDE 10 MEQ TABLET.SA PO SCH ×2 (09:16→23:40)
[2017-10-01] MEDS: CALCIUM CARBONATE 500 MG TAB.CHEW PO SCH ×2 (09:18→17:32)
[2017-10-01] MEDS: ARIPIPRAZOLE 5 MG TABLET PO SCH (09:22)
[2017-10-01] MEDS: TIZANIDINE HCL 4 MG TABLET PO SCH ×2 (09:24→17:31)
[2017-10-01] MEDS: TAMSULOSIN HCL 0.4 MG CAP.SR.24H PO SCH (09:24)
[2017-10-01] MEDS: MAGNESIUM OXIDE 400 MG TABLET PO SCH ×2 (09:25→23:40)
[2017-10-01] MEDS: LACTOBACILLUS ACIDOPHILUS 250 MG TAB PO SCH ×2 (09:25→17:31)
[2017-10-01] MEDS: LORATADINE 10 MG TABLET PO SCH (09:26)
[2017-10-01] MEDS: NYSTATIN 500000 UNIT/5 ML UDCUP PO SCH ×4 (09:26→23:41)
[2017-10-01] MEDS: DOCUSATE SODIUM 100 MG CAPSULE PO SCH (09:27)
--- NOTE | 2017-10-01 15:19 | PDOC PROGRESS REPORT ---
Subjective Progress Note for:: 10/01/17 Subjective:: Patient relates that the itchiness is gone. Neck pain is better. Diarrhea is improving. ROS All organ systems evaluated and negative except as in subjective All significant laboratories and diagnostics have been reviewed Reason For Visit: SEVERE SEPSIS NEUTROPENIC FEVER Physical Exam Vital Signs: Temp Pulse Resp BP Pulse Ox 98.8 F 78 20 116/78 98 10/01/17 05:00 10/01/17 05:00 10/01/17 05:00 10/01/17 05:00 10/01/17 05:00 Intake & Output 09/30/17 10/01/17 10/02/17 06:59 06:59 06:59 Intake Total 1602 884 Output Total 425 750 Balance 1177 134 Weight 171.9 kg 171.1 kg General appearance: PRESENT: no acute distress, cooperative, morbidly obese Head exam: PRESENT: atraumatic, normocephalic Eye exam: PRESENT: EOMI, PERRLA Ear exam: PRESENT: normal external ear exam, TM's normal bilaterally Mouth exam: PRESENT: moist Neck exam: PRESENT: full ROM. ABSENT: JVD, tenderness Respiratory exam: PRESENT: crackles, decreased breath sounds Cardiovascular exam: PRESENT: RRR. ABSENT: diastolic murmur, systolic murmur Vascular exam: PRESENT: normal capillary refill GI/Abdominal exam: PRESENT: distended, normal bowel sounds, other - Edema mostly localized to the left side of his body. ABSENT: ascites Extremities exam: PRESENT: +2 edema, other Musculoskeletal exam: PRESENT: full ROM Neurological exam: PRESENT: alert, oriented to person, oriented to place, oriented to time Psychiatric exam: PRESENT: appropriate affect, normal mood Skin exam: PRESENT: normal color, other - Psoriatic plaques appear to be improved Results Laboratory Results: 09/30/17 05:44 10/01/17 04:59 09/30/17 09/30/17 09/30/17 05:44 05:44 05:44 WBC 12.8 H RBC 3.16 L Hgb 9.6 L Hct 28.7 L MCV 91 MCH 30.4 MCHC 33.3 RDW 17.0 H Plt Count 206 Seg Neutrophils % Not Reportable Lymphocytes % Not Reportable Monocytes % Not Reportable Eosinophils % Not Reportable Basophils % Not Reportable Absolute Neutrophils Not Reportable Absolute Lymphocytes Not Reportable Absolute Monocytes Not Reportable Absolute Eosinophils Not Reportable Absolute Basophils Not Reportable Carbonic Acid HCO3/H2CO3 Ratio ABG pH ABG pCO2 ABG pO2 ABG HCO3 ABG O2 Saturation ABG Base Excess FiO2 Sodium 136.6 L Potassium 4.4 Chloride 103 Carbon Dioxide 20 L Anion Gap 14 BUN 13 Creatinine 1.08 Est GFR ( Amer) > 60 Est GFR (Non-Af Amer) > 60 Glucose 180 H Calcium 7.6 L Magnesium 1.8 Total Bilirubin 0.5 AST 30 ALT 38 Alkaline Phosphatase 39 Total Protein 5.3 L Albumin 2.8 L 09/30/17 10/01/17 12:23 04:59 WBC RBC Hgb Hct MCV MCH MCHC RDW Plt Count Seg Neutrophils % Lymphocytes % Monocytes % Eosinophils % Basophils % Absolute Neutrophils Absolute Lymphocytes Absolute Monocytes Absolute Eosinophils Absolute Basophils Carbonic Acid 1.30 HCO3/H2CO3 Ratio 18:1 ABG pH 7.35 ABG pCO2 43.3 ABG pO2 94.0 ABG HCO3 23.5 ABG O2 Saturation 96.9 ABG Base Excess -2.0 FiO2 2L Sodium 137.7 Potassium 4.9 Chloride 106 Carbon Dioxide 21 L Anion Gap 11 BUN 14 Creatinine 1.06 Est GFR ( Amer) > 60 Est GFR (Non-Af Amer) > 60 Glucose 174 H Calcium 7.4 L Magnesium 1.8 Total Bilirubin AST ALT Alkaline Phosphatase Total Protein Albumin 09/27/17 15:50 Stool - Stool - Final 09/27/17 15:50 Stool - Stool Stool Culture - Final C.albicans/C.dubliniensis 09/24/17 06:01 NT-Pro-B Natriuret Pep 282 Impressions: KUB X-Ray 09/24/17 00:00 IMPRESSION: Few Scattered gas filled bowel loops, nonspecific pattern. Follow- up recommended if persistent concern for developing obstruction. Multiple blastic bone lesions consistent with diffuse metastatic disease. Chest X-Ray 09/29/17 00:00 IMPRESSION: NO ACUTE RADIOGRAPHIC FINDING IN THE CHEST. Pneumonia cleared. Assessment & Plan - Diagnosis (1) Anemia Qualifiers: Anemia type: unspecified type Qualified Code(s): D64.9 - Anemia, unspecified Is this a current diagnosis for this admission?: Yes Plan: Likely due to chronic disease. 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 Continue present management. (3) Pneumonia Qualifiers: Pneumonia type: due to unspecified organism Laterality: bilateral Lung location: lower lobe of lung Qualified Code(s): J18.9 - Pneumonia, unspecified organism Is this a current diagnosis for this admission?: Yes Plan: All cultures so far negative. Chest x-ray cleared. Levaquin and Augmentin discontinued since appeared that wer making psoriasis worse (4) Severe sepsis Is this a current diagnosis for this admission?: Yes Plan: Resolved. (5) Nausea & vomiting Qualifiers: Vomiting type: unspecified Vomiting Intractability: unspecified Qualified Code(s): R11.2 - Nausea with vomiting, unspecified Is this a current diagnosis for this admission?: Yes Plan: Improved. (6) Diarrhea Is this a current diagnosis for this admission?: Yes Plan: Mild likely due to antibiotic. C. difficile negative. Stool culture negative for bacteria but positive for Lisa albicans. Patient already on nystatin (7) Sleep apnea Qualifiers: Sleep apnea type: obstructive Qualified Code(s): G47.33 - Obstructive sleep apnea (adult) (pediatric) Is this a current diagnosis for this admission?: Yes Plan: Continue BiPAP. Been a little bit more compliant while in-house. Patient and had been made aware need to follow-up with primary care provider to be refitted (8) Hypokalemia Is this a current diagnosis for this admission?: Yes Plan: Continue oral supplementation since on higher dose of Lasix (9) Hypomagnesemia Is this a current diagnosis for this admission?: Yes Plan: Continue oral replacement. Trend (10) Cough Is this a current diagnosis for this admission?: Yes Plan: reports improvement as was started on Lasix (11) Hypocalcemia syndrome Is this a current diagnosis for this admission?: Yes Plan: Replaced.Continue with oral replacement and trend (12) Morbid obesity due to excess calories Is this a current diagnosis for this admission?: Yes Plan: Advised to not get any more weight since breathing problems may worsen (13) Psoriasis Is this a current diagnosis for this admission?: Yes Plan: Decrease solumedrol IV since wide area to cover with topical steroids. Continue emollient. Likely exacerbated because of newly introduced medications including antibiotics (14) Thrush, oral Is this a current diagnosis for this admission?: Yes Plan: Continue oral nystatin (15) Pulmonary hypertension Is this a current diagnosis for this admission?: Yes Plan: Encourage use of BiPAP (16) Anasarca Is this a current diagnosis for this admission?: Yes Plan: Increase Lasix IV - Time Time Spent with patient: 15-24 minutes Medications reviewed and adjusted accordingly: Yes Anticipated discharge: Home with Homehealth Within: within 72 hours - Inpatient Certification Based on my medical assessment, after consideration of the patient's comorbidities, presenting symptoms, or acuity I expect that the services needed warrant INPATIENT care.: Yes I certify that my determination is in accordance with my understanding of Medicare's requirements for reasonable and necessary INPATIENT services [42 CFR 412.3e].: Yes Medical Necessity: Other - IV Lasix
[2017-10-01] MEDS: MONTELUKAST SODIUM 10 MG TABLET PO SCH (17:31)
[2017-10-02] MEDS: BENZONATATE 100 MG CAPSULE PO SCH ×3 (05:53→21:22)
[2017-10-02] MEDS: LANSOPRAZOLE 30 MG TAB.RAP.DR PO SCH ×2 (05:53→17:34)
[2017-10-02] MEDS: FUROSEMIDE INJ/PF 40 MG/4 ML SDV IV SCH ×2 (05:53→17:33)
[2017-10-02] MEDS: FONDAPARINUX SODIUM INJ 2.5 MG/0.5 ML DISP.SYRIN SUBCUT SCH (08:41)
[2017-10-02] MEDS: IPRATROPIUM/ALBUTEROL 0.5-2.5 MG/3 ML AMPUL NEB SCH ×3 (08:52→20:03)
[2017-10-02] MEDS: CHOLECALCIFEROL (D3) 1,000 UNIT TABLET PO SCH (10:35)
[2017-10-02] MEDS: CALCIUM CARBONATE 500 MG TAB.CHEW PO SCH ×2 (10:35→17:34)
[2017-10-02] MEDS: NYSTATIN 500000 UNIT/5 ML UDCUP PO SCH ×4 (10:35→21:22)
[2017-10-02] MEDS: LACTOBACILLUS ACIDOPHILUS 250 MG TAB PO SCH ×2 (10:35→17:34)
[2017-10-02] MEDS: METHYLPREDNISOLONE INJ 40 MG/1 ML SDV IV SCH (10:35)
[2017-10-02] MEDS: ARIPIPRAZOLE 5 MG TABLET PO SCH (10:36)
[2017-10-02] MEDS: TAMSULOSIN HCL 0.4 MG CAP.SR.24H PO SCH (10:36)
[2017-10-02] MEDS: TIZANIDINE HCL 4 MG TABLET PO SCH ×2 (10:36→17:34)
[2017-10-02] MEDS: POTASSIUM CHLORIDE 10 MEQ TABLET.SA PO SCH ×2 (10:36→21:21)
[2017-10-02] MEDS: MAGNESIUM OXIDE 400 MG TABLET PO SCH ×2 (10:37→21:22)
[2017-10-02] MEDS: PANTOT AC/MIN OIL/PET HY-PHL OINT 50 GM TOP SCH ×3 (10:37→17:58)
[2017-10-02] MEDS: LORATADINE 10 MG TABLET PO SCH (10:37)
[2017-10-02] MEDS: FLUTICASONE/SALMETEROL DISKUS 250-50 MCG/DOSE IH SCH ×2 (10:38→21:22)
[2017-10-02] MEDS: DUTASTERIDE 0.5 MG CAPSULE PO SCH (10:38)
[2017-10-02] MEDS: DOCUSATE SODIUM 100 MG CAPSULE PO SCH (10:54)
[2017-10-02] MEDS: NYSTATIN TOPICAL POWDER 15 GM TP SCH ×2 (13:06→17:47)
--- NOTE | 2017-10-02 15:19 | PDOC PROGRESS REPORT ---
Subjective Progress Note for:: 10/02/17 Subjective:: Patient relates that cough is better at night and that is not having neck pain. Itchiness is gone. states that he had been using the BiPAP may be 1 or 2 hours at the most ROS All organ systems evaluated and negative except as in subjective All significant laboratories and diagnostics have been reviewed Reason For Visit: SEVERE SEPSIS NEUTROPENIC FEVER Physical Exam Vital Signs: Temp Pulse Resp BP Pulse Ox 98.3 F 95 16 115/70 95 10/02/17 12:02 10/02/17 14:20 10/02/17 14:20 10/02/17 12:02 10/02/17 14:20 Intake & Output 10/01/17 10/02/17 10/03/17 06:59 06:59 06:59 Intake Total 884 1699 522 Output Total 750 7785 2375 Balance 134 -4786 -7604 Weight 171.1 kg 168.3 kg General appearance: PRESENT: no acute distress, cooperative, morbidly obese Head exam: PRESENT: atraumatic, normocephalic Eye exam: PRESENT: EOMI, PERRLA Ear exam: PRESENT: normal external ear exam, TM's normal bilaterally Mouth exam: PRESENT: moist Neck exam: PRESENT: full ROM. ABSENT: JVD, tenderness Respiratory exam: PRESENT: clear to auscultation yamini Cardiovascular exam: PRESENT: RRR. ABSENT: diastolic murmur, systolic murmur Vascular exam: PRESENT: normal capillary refill GI/Abdominal exam: PRESENT: other - Edema this is slowly improving. Gums were not soaked with fluids. Extremities exam: PRESENT: full ROM, other - Edema in legs slowly improving. ABSENT: joint swelling Neurological exam: PRESENT: alert, awake, oriented to person, oriented to place , oriented to time, CN II-XII grossly intact Psychiatric exam: PRESENT: appropriate affect, normal mood Skin exam: PRESENT: normal color, other - Reactive plaques appear less scaly Results Laboratory Results: 09/30/17 05:44 10/01/17 04:59 09/24/17 06:01 NT-Pro-B Natriuret Pep 282 Impressions: KUB X-Ray 09/24/17 00:00 IMPRESSION: Few Scattered gas filled bowel loops, nonspecific pattern. Follow- up recommended if persistent concern for developing obstruction. Multiple blastic bone lesions consistent with diffuse metastatic disease. Chest X-Ray 09/29/17 00:00 IMPRESSION: NO ACUTE RADIOGRAPHIC FINDING IN THE CHEST. Pneumonia cleared. Assessment & Plan - Diagnosis (1) Anemia Qualifiers: Anemia type: unspecified type Qualified Code(s): D64.9 - Anemia, unspecified Is this a current diagnosis for this admission?: Yes Plan: Likely due to chronic disease. 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 Continue present management. (3) Pneumonia Qualifiers: Pneumonia type: due to unspecified organism Laterality: bilateral Lung location: lower lobe of lung Qualified Code(s): J18.9 - Pneumonia, unspecified organism Is this a current diagnosis for this admission?: Yes Plan: All cultures so far negative. Chest x-ray cleared. (4) Severe sepsis Is this a current diagnosis for this admission?: Yes Plan: Resolved. (5) Nausea & vomiting Qualifiers: Vomiting type: unspecified Vomiting Intractability: unspecified Qualified Code(s): R11.2 - Nausea with vomiting, unspecified Is this a current diagnosis for this admission?: Yes Plan: Improved. (6) Diarrhea Is this a current diagnosis for this admission?: Yes Plan: Mild likely due to antibiotic. C. difficile negative. Stool culture negative for bacteria but positive for Lisa albicans. Patient already on nystatin (7) Sleep apnea Qualifiers: Sleep apnea type: obstructive Qualified Code(s): G47.33 - Obstructive sleep apnea (adult) (pediatric) Is this a current diagnosis for this admission?: Yes Plan: Culprit of anasarca. Patient not tolerating CPAP or BiPAP. Will continue with diuresis IV and will have to be discharged home with diuretic (8) Hypokalemia Is this a current diagnosis for this admission?: Yes Plan: Continue oral supplementation since on higher dose of Lasix. (9) Hypomagnesemia Is this a current diagnosis for this admission?: Yes Plan: Continue oral replacement. Trend (10) Cough Is this a current diagnosis for this admission?: Yes Plan: reports improvement as was started on Lasix (11) Hypocalcemia syndrome Is this a current diagnosis for this admission?: Yes Plan: Replaced. Continue with oral replacement and trend. Likes to arrange after he got chemotherapy. (12) Morbid obesity due to excess calories Is this a current diagnosis for this admission?: Yes Plan: Advised to not get any more weight since breathing problems may worsen (13) Psoriasis Is this a current diagnosis for this admission?: Yes Plan: Decrease solumedrol IV since wide area to cover with topical steroids. Continue emollient. Likely exacerbated because of newly introduced medications including antibiotics (14) Thrush, oral Is this a current diagnosis for this admission?: Yes Plan: Continue oral nystatin (15) Pulmonary hypertension Is this a current diagnosis for this admission?: Yes Plan: Encourage use of BiPAP (16) Anasarca Is this a current diagnosis for this admission?: Yes Plan: Continue IV Lasix and current dose since no longer soaking his gown - Time Time Spent with patient: 15-24 minutes Medications reviewed and adjusted accordingly: Yes Anticipated discharge: Home with Homehealth Within: within 48 hours - Inpatient Certification Based on my medical assessment, after consideration of the patient's comorbidities, presenting symptoms, or acuity I expect that the services needed warrant INPATIENT care.: Yes I certify that my determination is in accordance with my understanding of Medicare's requirements for reasonable and necessary INPATIENT services [42 CFR 412.3e].: Yes Medical Necessity: Other - IV Lasix
[2017-10-02] MEDS: MONTELUKAST SODIUM 10 MG TABLET PO SCH (17:34)
[2017-10-03] MEDS: ZOLPIDEM TARTRATE 5 MG TABLET PO PRN ×2 (01:20→22:30)
[2017-10-03] MEDS: FUROSEMIDE INJ/PF 40 MG/4 ML SDV IV SCH (06:16)
[2017-10-03] MEDS: BENZONATATE 100 MG CAPSULE PO SCH ×3 (06:18→21:44)
[2017-10-03] MEDS: LANSOPRAZOLE 30 MG TAB.RAP.DR PO SCH ×2 (06:18→16:33)
[2017-10-03] MEDS: IPRATROPIUM/ALBUTEROL 0.5-2.5 MG/3 ML AMPUL NEB SCH ×3 (08:17→20:14)
[2017-10-03] MEDS: DOCUSATE SODIUM 100 MG CAPSULE PO SCH (09:04)
[2017-10-03] MEDS: CALCIUM CARBONATE 500 MG TAB.CHEW PO SCH ×2 (09:16→17:47)
[2017-10-03] MEDS: ARIPIPRAZOLE 5 MG TABLET PO SCH (09:16)
[2017-10-03] MEDS: CHOLECALCIFEROL (D3) 1,000 UNIT TABLET PO SCH (09:16)
[2017-10-03] MEDS: TIZANIDINE HCL 4 MG TABLET PO SCH ×2 (09:16→17:47)
[2017-10-03] MEDS: FONDAPARINUX SODIUM INJ 2.5 MG/0.5 ML DISP.SYRIN SUBCUT SCH (09:16)
[2017-10-03] MEDS: LACTOBACILLUS ACIDOPHILUS 250 MG TAB PO SCH ×2 (09:16→17:49)
[2017-10-03] MEDS: NYSTATIN TOPICAL POWDER 15 GM TP SCH ×2 (09:17→17:47)
[2017-10-03] MEDS: MAGNESIUM OXIDE 400 MG TABLET PO SCH ×2 (09:17→21:44)
[2017-10-03] MEDS: DUTASTERIDE 0.5 MG CAPSULE PO SCH (09:17)
[2017-10-03] MEDS: FLUTICASONE/SALMETEROL DISKUS 250-50 MCG/DOSE IH SCH ×2 (09:17→21:44)
[2017-10-03] MEDS: POTASSIUM CHLORIDE 10 MEQ TABLET.SA PO SCH ×2 (09:17→21:43)
[2017-10-03] MEDS: LORATADINE 10 MG TABLET PO SCH (09:17)
[2017-10-03] MEDS: TAMSULOSIN HCL 0.4 MG CAP.SR.24H PO SCH (09:17)
[2017-10-03] MEDS: PANTOT AC/MIN OIL/PET HY-PHL OINT 50 GM TOP SCH ×3 (09:17→17:47)
[2017-10-03] MEDS: NYSTATIN 500000 UNIT/5 ML UDCUP PO SCH ×4 (09:32→21:42)
[2017-10-03] MEDS ORDERED: METHYLPREDNISOLONE INJ 40 MG/1 ML SDV IV SCH (10:00)
[2017-10-03] MEDS ORDERED: LOPERAMIDE HCL 2 MG CAPSULE PO PRN (11:04)
[2017-10-03] MEDS ORDERED: PREDNISONE 20 MG TABLET PO ONE (11:30)
[2017-10-03] MEDS: MONTELUKAST SODIUM 10 MG TABLET PO SCH (17:47)
[2017-10-03] MEDS: FUROSEMIDE 40 MG TABLET PO SCH (17:48)
[2017-10-04] MEDS: BENZONATATE 100 MG CAPSULE PO SCH (06:03)
[2017-10-04] MEDS: LANSOPRAZOLE 30 MG TAB.RAP.DR PO SCH (06:03)
[2017-10-04] MEDS: IPRATROPIUM/ALBUTEROL 0.5-2.5 MG/3 ML AMPUL NEB SCH (07:54)
[2017-10-04] MEDS ORDERED: METOLAZONE 2.5 MG TABLET PO SCH (10:00)
[2017-10-04] MEDS ORDERED: PREDNISONE 20 MG TABLET PO SCH (10:00)
[2017-10-04] MEDS: LACTOBACILLUS ACIDOPHILUS 250 MG TAB PO SCH (10:05)
[2017-10-04] MEDS: LORATADINE 10 MG TABLET PO SCH (10:05)
[2017-10-04] MEDS: MAGNESIUM OXIDE 400 MG TABLET PO SCH (10:05)
[2017-10-04] MEDS: TAMSULOSIN HCL 0.4 MG CAP.SR.24H PO SCH (10:06)
[2017-10-04] MEDS: NYSTATIN 500000 UNIT/5 ML UDCUP PO SCH (10:06)
[2017-10-04] MEDS: CALCIUM CARBONATE 500 MG TAB.CHEW PO SCH (10:06)
[2017-10-04] MEDS: FUROSEMIDE 40 MG TABLET PO SCH (10:07)
[2017-10-04] MEDS: CHOLECALCIFEROL (D3) 1,000 UNIT TABLET PO SCH (10:07)
[2017-10-04] MEDS: TIZANIDINE HCL 4 MG TABLET PO SCH (10:07)
[2017-10-04] MEDS: ARIPIPRAZOLE 5 MG TABLET PO SCH (10:08)
[2017-10-04] MEDS: POTASSIUM CHLORIDE 10 MEQ TABLET.SA PO SCH (10:08)
[2017-10-04] MEDS: FONDAPARINUX SODIUM INJ 2.5 MG/0.5 ML DISP.SYRIN SUBCUT SCH (10:09)
[2017-10-04] MEDS: DUTASTERIDE 0.5 MG CAPSULE PO SCH (10:10)
[2017-10-04] MEDS: FLUTICASONE/SALMETEROL DISKUS 250-50 MCG/DOSE IH SCH (10:10)
[2017-10-04] MEDS: NYSTATIN TOPICAL POWDER 15 GM TP SCH (10:10)
[2017-10-04] MEDS: DOCUSATE SODIUM 100 MG CAPSULE PO SCH (10:11)
[2017-10-04] MEDS: PANTOT AC/MIN OIL/PET HY-PHL OINT 50 GM TOP SCH (10:11)
[2017-10-04 12:51] VITALS: BP 109/70
--- NOTE | 2017-10-04 13:37 | PDOC PROGRESS REPORT ---
Subjective Progress Note for:: 10/03/17 Subjective:: Patient states he is doing much better. Patient does have some swelling patient is -4L+ after the last 2 days. Patient is walking with PT and moving much better. Explained to patient that I will have to transition to po lasix and steroids prior to discharge. Reason For Visit: SEVERE SEPSIS NEUTROPENIC FEVER Physical Exam Vital Signs: Temp Pulse Resp BP Pulse Ox 98.8 F 102 H 20 129/84 H 96 10/03/17 19:23 10/03/17 19:23 10/03/17 19:23 10/03/17 19:23 10/03/17 19:23 General appearance: PRESENT: no acute distress, morbidly obese Head exam: PRESENT: normocephalic Eye exam: PRESENT: EOMI. ABSENT: scleral icterus Ear exam: PRESENT: normal external ear exam Mouth exam: PRESENT: moist Neck exam: ABSENT: carotid bruit, JVD, lymphadenopathy, thyromegaly Respiratory exam: PRESENT: clear to auscultation yamini. ABSENT: rales, rhonchi, wheezes Cardiovascular exam: PRESENT: RRR. ABSENT: diastolic murmur, rubs, systolic murmur GI/Abdominal exam: PRESENT: normal bowel sounds, soft. ABSENT: distended, guarding, mass, organolmegaly, rebound, tenderness Rectal exam: PRESENT: deferred Extremities exam: PRESENT: full ROM. ABSENT: calf tenderness, clubbing, pedal edema Neurological exam: PRESENT: alert, awake, oriented to person, oriented to place , oriented to time, oriented to situation, CN II-XII grossly intact. ABSENT: motor sensory deficit Psychiatric exam: PRESENT: appropriate affect, normal mood. ABSENT: homicidal ideation, suicidal ideation Skin exam: PRESENT: dry, intact, warm, other - difuse desquamation. ABSENT: cyanosis, rash Results Laboratory Results: 09/30/17 05:44 10/01/17 04:59 09/24/17 06:01 NT-Pro-B Natriuret Pep 282 Impressions: KUB X-Ray 09/24/17 00:00 IMPRESSION: Few Scattered gas filled bowel loops, nonspecific pattern. Follow- up recommended if persistent concern for developing obstruction. Multiple blastic bone lesions consistent with diffuse metastatic disease. Chest X-Ray 09/29/17 00:00 IMPRESSION: NO ACUTE RADIOGRAPHIC FINDING IN THE CHEST. Pneumonia cleared. Assessment & Plan - Diagnosis (1) Anasarca Is this a current diagnosis for this admission?: Yes Plan: Patient diuresing well on IV Lasix. Will transition to p.o. Lasix and metolazone. Will continue to monitor strict I's and O's. Patient able to maintain negative fluid balance on oral diuretics for discharge home on a few more days of oral diuretic. (2) Anemia Qualifiers: Anemia type: unspecified type Qualified Code(s): D64.9 - Anemia, unspecified Is this a current diagnosis for this admission?: Yes Plan: Most likely anemia chronic disease. Currently stable. (3) Diarrhea Is this a current diagnosis for this admission?: Yes Plan: C. difficile is negative. Patient tends to have intermittent diarrhea. Patient given Lomotil. (4) Hypokalemia Is this a current diagnosis for this admission?: Yes Plan: Resolved. Will continue oral supplementation with patient being on Lasix. (5) Hypomagnesemia Is this a current diagnosis for this admission?: Yes Plan: Continue supplementation. (6) Morbid obesity due to excess calories Is this a current diagnosis for this admission?: Yes Plan: Patient counseled on diet and physical activity and the importance of weight loss as this may be affecting his breathing. (7) Nausea & vomiting Qualifiers: Vomiting type: unspecified Vomiting Intractability: unspecified Qualified Code(s): R11.2 - Nausea with vomiting, unspecified Is this a current diagnosis for this admission?: Yes Plan: Resolved (8) Prostate cancer metastatic to bone Is this a current diagnosis for this admission?: Yes Plan: Stable. (9) Psoriasis Is this a current diagnosis for this admission?: Yes Plan: Patient on topical emollients and now oral steroids. Patient will be discharged on a steroid taper. Patient could continue with the emollients at home. (10) Pulmonary hypertension Is this a current diagnosis for this admission?: Yes Plan: Appears to be a chronic problem most likely secondary to obstructive sleep apnea that is not treated. Patient does not want to use the BiPAP. Patient is currently being weaned off his oxygen he does not use oxygen at home. (11) Severe sepsis Is this a current diagnosis for this admission?: Yes Plan: Due to pneumonia. Treated with Levaquin and Augmentin. Now resolved. (12) Thrush, oral Is this a current diagnosis for this admission?: Yes Plan: Patient treated with nystatin. This could have resulted from antibiotic and or steroid. - Time Time Spent with patient: 15-24 minutes Anticipated discharge: Home with Homehealth Within: within 24 hours
--- NOTE | 2017-10-04 15:29 | PDOC DISCHARGE SUMMARY ---
General - Admit/Disc Date/PCP Admission Date/Primary Care Provider: 09/23/17 09:18 CEE PERES MD Discharge Date: 10/04/17 - Discharge Diagnosis (1) Anasarca Is this a current diagnosis for this admission?: Yes (2) Anemia Is this a current diagnosis for this admission?: Yes (3) Diarrhea Is this a current diagnosis for this admission?: Yes (4) Hypokalemia Is this a current diagnosis for this admission?: Yes (5) Hypomagnesemia Is this a current diagnosis for this admission?: Yes (6) Morbid obesity due to excess calories Is this a current diagnosis for this admission?: Yes (7) Nausea & vomiting Is this a current diagnosis for this admission?: Yes (8) Prostate cancer metastatic to bone Is this a current diagnosis for this admission?: Yes (9) Psoriasis Is this a current diagnosis for this admission?: Yes (10) Pulmonary hypertension Is this a current diagnosis for this admission?: Yes (11) Severe sepsis Is this a current diagnosis for this admission?: Yes (12) Thrush, oral Is this a current diagnosis for this admission?: Yes - Additional Information Resuscitation Status: Full Code Discharge Diet: Regular Discharge Activity: Activity As Tolerated Home Medications: Aripiprazole [Abilify 10 mg Tablet] 10 mg PO QHS 09/23/17 Cholecalciferol (Vitamin D3) [Vitamin D3 5000 unit Capsule] 5,000 unit PO DAILY 09/23/17 Dutasteride [Avodart Lf 0.5 mg Capsule] 0.5 mg PO DAILY 09/23/17 Esomeprazole Magnesium [Nexium 24Hr] 40 mg PO DAILY 09/23/17 Fluticasone/Salmeterol [Advair HFA 115-21 mcg Inhaler] 1 dose IH DAILY 09/23/17 Ondansetron HCl [Zofran 8 mg Tablet] 8 mg PO Q8HP PRN MDD FILLED 09/23 FOR 4DS Tamsulosin HCl [Flomax 0.4 mg Cap.sr] 0.4 mg PO DAILY 09/23/17 Tiotropium [place] [Spiriva] 1 cap IH DAILY 09/23/17 Zolpidem Tartrate 10 mg PO QHS 09/23/17 Albuterol Sulfate [Proair HFA Inhalation Aerosol 8.5 gm MDI] 1 puff IH Q6HP PRN 09/25/17 Amlodipine Besylate [Norvasc 5 mg Tablet] 5 mg PO DAILY 09/25/17 Brimonidine Tartrate/Timolol [Combigan 0.2%-0.5% Eye Drops] 1 drop OU BID Calcipotriene/Betamethasone [Enstilar 0.005%-0.064% Foam] 1 applic TOP DAILY 02/06 Dorzolamide HCl 1 drop OU BID 09/25/17 Furosemide [Lasix 40 mg Tablet] 40 mg PO DAILY 5 Days tablet 10/04/17 Methylprednisolone [Medrol Dosepack (4 mg/Tab) 21 Tab/Dosepak] 4 mg PO ASDIR PRN #21 tab.ds.pk 10/04/17 Potassium Chloride 10 meq PO DAILY #5 tablet.er 10/04/17 History of Present Illness History of Present Illness: SARAH CORADO JR is a 76 year old male by ambulance with his with complaints of chills and shakes and fever. Patient was was given 5 L of fluid however patient blood pressure remained in the low 100s. Please refer to H&P dictated by Dr. Conway for complete details. Hospital Course Hospital Course: Patient was admitted for bilateral lower lobe pneumonia. Patient was started on Zyvox and Zosyn and then transition to Levaquin and Augmentin. Patient blood cultures were followed and were negative. Patient stool did grow yeast. Patient sepsis symptoms did resolve. As a result of aggressive fluid hydration patient did develop anasarca. Patient was given aggressive diuresis with Lasix 80 mg twice daily along with supplemental potassium to prevent and replete his potassium. Patient was also given magnesium. Patient is a negative almost 5 L fluid balance after receiving aggressive diuresis. Patient was also noted to have anemia however this is likely secondary to his chronic disease. Patient has a known history of prosthetic cancer with metastases to the bone and is currently receiving treatment. Patient was having some nausea and vomiting most likely related to his illness which has since resolved. Patient did have some diarrhea which patient tends to have from time to time. C. difficile was ruled out prior to patient get being given antidiarrheal. That too has resolved. Patient does have morbid obesity and was counseled on physical activity and diet at this may be affecting his breathing as patient does have a known history of pulmonary hypertension. Patient was advised to use the BiPAP however patient was reluctant to use it and only used it intermittently. Patient was weaned off his supplemental oxygen and was maintaining his saturations. Patient did participate in physical activity prior to discharge home. Physical therapy felt that he was appropriate for home health with physical therapy with a bariatric commode. Patient did have a flareup of his psoriasis for which he was started on steroids and given lubricants for his skin. This has since improved. Patient will be placed on a steroid taper on discharge home. At that patient was given nystatin for his oral thrush. No oral thrush most likely result from the use of antibiotic and or steroids. This too has since resolved. Physical Exam Vital Signs: Temp Pulse Resp BP Pulse Ox 98.6 F 93 22 H 109/70 97 10/04/17 12:49 10/04/17 12:49 10/04/17 12:49 10/04/17 12:49 10/04/17 12:49 Intake & Output 10/03/17 10/04/17 10/05/17 06:59 06:59 06:59 Intake Total 777 2386 414 Output Total 2676 2392 560 Balance -1899 -6 -146 Weight 155.7 kg 144.8 kg General appearance: PRESENT: no acute distress, morbidly obese Head exam: PRESENT: normocephalic Eye exam: PRESENT: EOMI. ABSENT: scleral icterus Ear exam: PRESENT: normal external ear exam Mouth exam: PRESENT: moist Neck exam: ABSENT: carotid bruit, JVD, lymphadenopathy, thyromegaly Respiratory exam: PRESENT: clear to auscultation yamini, decreased breath sounds. ABSENT: rales, rhonchi, wheezes Cardiovascular exam: PRESENT: RRR. ABSENT: diastolic murmur, rubs, systolic murmur Pulses: PRESENT: normal dorsalis pedis pul Vascular exam: PRESENT: normal capillary refill GI/Abdominal exam: PRESENT: normal bowel sounds, soft. ABSENT: distended, guarding, mass, organolmegaly, rebound, tenderness Rectal exam: PRESENT: deferred Extremities exam: PRESENT: full ROM. ABSENT: calf tenderness, clubbing, pedal edema Neurological exam: PRESENT: alert, awake, oriented to person, oriented to place , oriented to time, oriented to situation, CN II-XII grossly intact. ABSENT: motor sensory deficit Psychiatric exam: PRESENT: appropriate affect, normal mood. ABSENT: homicidal ideation, suicidal ideation Skin exam: PRESENT: dry, intact, warm, other - Desquamation of the skin. ABSENT : cyanosis, rash Results Laboratory Results: 09/30/17 05:44 10/01/17 04:59 09/24/17 06:01 NT-Pro-B Natriuret Pep 282 Impressions: KUB X-Ray 09/24/17 00:00 IMPRESSION: Few Scattered gas filled bowel loops, nonspecific pattern. Follow- up recommended if persistent concern for developing obstruction. Multiple blastic bone lesions consistent with diffuse metastatic disease. Chest X-Ray 09/29/17 00:00 IMPRESSION: NO ACUTE RADIOGRAPHIC FINDING IN THE CHEST. Pneumonia cleared. Qualifiers PATEINT BEING DISCHARGED WITH ANY OF THE FOLLOWING DIAGNOSIS?: No Plan Time Spent: Less than 30 Minutes
== END 2017-10-04 13:33 | disposition home health service (06) | DRG 871 ==
LOC: ER 05:17 → UNDOADMIN 09:18 → EH 09:18 → 3S 12:20 → EH 12:20
PROVIDERS: ADMIT Family Medicine; ATTEND Family Medicine
PROC: 5A09457 Assistance with Respiratory Ventilation, 24-96 Consecutive Hours, Continuous Positive Airway Pressure (ICD-10-PCS; principal; 2017-09-23)
PROC: 3E0F73Z Introduction of Anti-inflammatory into Respiratory Tract, Via Natural or Artificial Opening (ICD-10-PCS; 2017-09-24)
DX: A41.9 Sepsis, unspecified organism (principal); J18.9 Pneumonia, unspecified organism; Z68.41 Body mass index [BMI] 40.0-44.9, adult; C79.51 Secondary malignant neoplasm of bone; B37.0 Candidal stomatitis; R65.20 Severe sepsis without septic shock; R19.7 Diarrhea, unspecified; E87.6 Hypokalemia; E83.42 Hypomagnesemia; E66.01 Morbid (severe) obesity due to excess calories; C61 Malignant neoplasm of prostate; L40.9 Psoriasis, unspecified; I27.20 Pulmonary hypertension, unspecified; D63.8 Anemia in other chronic diseases classified elsewhere; I10 Essential (primary) hypertension; G47.30 Sleep apnea, unspecified; D70.9 Neutropenia, unspecified; R50.81 Fever presenting with conditions classified elsewhere; T36.0X5A Adverse effect of penicillins, initial encounter; E83.51 Hypocalcemia; R60.1 Generalized edema; Z79.899 Other long term (current) drug therapy; Z82.49 Family history of ischemic heart disease and other diseases of the circulatory system
CPT/HCPCS: 36415; 36600; 71010; 71020; 74000; 80048; 80053; 80076; 81001; 82803; 83605; 83735; 83880; 85025; 87040; 87045; 87205; 87493; 93005; 93010; 93306; 94640; 94660; 96361; 96365; 96367; 96375; 99291; J0610; J0692; J1652; J1940; J2020; J2405; J2543; J2550; J2920; J3370; J3475; J3490; J7030; J7040; J7512; J7620

== ENCOUNTER 2018-05-31 16:29 | Emergency (ER) | payer MEDICARE, OTHER ==
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
[2018-05-31 22:29] LABS: ABSOLUTE LYMPHOCYTES (AUTO) 1.2 10^3/uL (0.5-4.7); ABSOLUTE MONOCYTES (AUTO) 0.3 10^3/uL (0.1-1.4); BASOPHILS % (AUTO) 0.5 % (0-2); EOSINOPHILS % (AUTO) 0.2 % (0-6); HEMATOCRIT 32.3 % (37.9-51.0); HEMOGLOBIN 10.7 g/dL (13.5-17.0); LYMPHOCYTES % (AUTO) 18.3 % (13-45); MEAN CORPUSCULAR HEMOGLOBIN 30.5 pg (27.0-33.4); MEAN CORPUSCULAR HGB CONC 33.1 g/dL (32.0-36.0); MEAN CORPUSCULAR VOLUME 92 fl (80-97); PLATELET COUNT 121 10^3/uL (150-450); RED CELL DISTRIBUTION WIDTH 18.3 % (11.5-14.0); TOTAL CELLS COUNTED % (AUTO) 100 %; WHITE BLOOD COUNT 6.6 10^3/uL (4.0-10.5)
[2018-05-31 22:40] LABS: INTERNATIONAL RATION (INR) 0.91; PARTIAL THROMBOPLASTIN TIME 28.6 SEC (23.5-35.8); PROTHROMBIN TIME 12.7 SEC (11.4-15.4)
[2018-05-31 22:47] LABS: ALANINE AMINOTRANSFERASE 49 U/L (21-72); ALBUMIN 3.1 g/dL (3.5-5.0); ALKALINE PHOSPHATASE 64 U/L (38-126); ANION GAP 10 (5-19); ASPARTATE AMINO TRANSFERASE 37 U/L (17-59); BILIRUBIN,DIRECT 0.2 mg/dL (0.0-0.4); BLOOD UREA NITROGEN 18 mg/dL (7-20); CALCIUM 8.5 mg/dL (8.4-10.2); CARBON DIOXIDE 25 mmol/L (22-30); CHLORIDE 105 mmol/L (98-107); GLUCOSE 109 mg/dL (75-110); POTASSIUM 4.4 mmol/L (3.6-5.0); TOTAL PROTEIN 5.6 g/dL (6.3-8.2)
[2018-05-31] MEDS ORDERED: PANTOPRAZOLE SODIUM 40 MG VIAL IV ONE (22:54)
[2018-05-31] MEDS ORDERED: RINGERS SOLUTION,LACTATED 1,000 ML IV ONE (22:54)
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
[2018-06-01 00:07] VITALS: BP 119/79
== END 2018-06-01 01:15 | disposition short-term general hospital (02) ==
LOC: ER 16:29
DX: K62.5 Hemorrhage of anus and rectum (principal); E66.01 Morbid (severe) obesity due to excess calories; C61 Malignant neoplasm of prostate; C79.51 Secondary malignant neoplasm of bone; I10 Essential (primary) hypertension
CPT/HCPCS: 99285; 96361; 96374; 86900; 86901; 36415; 86850; 85025; 85610; 85730; 80053; C9113; J7120; S0164